=== PATIENT | female | born 1965 | race Caucasian/White ===

== ENCOUNTER 2017-03-21 20:12 | Inpatient (IN) | payer OTHER ==
[~2017-03-21] VITALS: Ht 165.1 cm; Wt 63.2 kg
[~2017-03-21 20:12] MED LIST changes: -ACYC400T PO; -CYMB60CA PO; -DOCU1CAP39 PO; -FEXO15TA PO; -FLUT1INH INH; -FLUT50SP EACH NARE; -HYDR-3580 PO; -LIOT5TAB3 PO; -MOBI15TA PO; -MONT10TA4 PO; -MULTTAB25 PO; -PANT40TA3 PO; -PRED20 PO; -SIME1CHW11 PO; -TOPI200T7 PO; -VITA100021 SL; -VITA2000 PO
[2017-03-21 20:15] VITALS: BP 102/71; PULSE 103; RESP 18; TEMP 98.9; O2SAT 100
[2017-03-21 22:00] VITALS: BP 118/81; PULSE 90; RESP 18; O2SAT 100
[2017-03-21] MEDS ORDERED: TOPI200T7 PO (22:06)
[2017-03-21] MEDS ORDERED: VITA2000 PO (22:06)
[2017-03-21] MEDS ORDERED: FEXO15TA PO (22:06)
[2017-03-21] MEDS ORDERED: MONT10TA4 PO (22:06)
[2017-03-21] MEDS ORDERED: ACYC400T PO (22:06)
[2017-03-21] MEDS ORDERED: LEVO.1 PO (22:06)
[2017-03-21] MEDS ORDERED: HYDR-3580 PO (22:06)
[2017-03-21] MEDS ORDERED: MOBI15TA PO (22:06)
[2017-03-21] MEDS ORDERED: CYMB60CA PO (22:06)
[2017-03-21] MEDS ORDERED: MYCO500 PO ×2 (22:06)
[2017-03-21] MEDS ORDERED: VITA100021 SL (22:06)
[2017-03-21] MEDS ORDERED: LIOT5TAB3 PO (22:06)
[2017-03-21] MEDS ORDERED: FLUT50SP EACH NARE (22:06)
[2017-03-21] MEDS ORDERED: MULTTAB25 PO (22:06)
[2017-03-21] MEDS ORDERED: FLUT1INH INH (22:06)
--- NOTE | 2017-03-21 22:09 | PD ---
HPI Chief Complaint: Abdominal Pain Time Seen by Provider: 22:05 Travel History International Travel<30 days: No Contact w/Intl Traveler<30days: No Traveled to known affect area: No History of Present Illness HPI 52-year-old female presents to the emergency department by private transportation for complaint of generalized weakness nausea subjective fever and intermittent chills myalgias arthralgias left lower quadrant abdominal pain bloating and fatigue. Patient is presently under the care of Dr. France and for history of lupus, anemia, hypothyroidism, asthma, and depression. Symptoms have developed over the past 2-3 weeks and have progressively worsened. Patient has had an outpatient CT of the abdomen and pelvis from her primary care provider which revealed no acute abnormalities. Patient is also performed a bowel cleansing for subjective constipation which was reportedly successful but now again feels bloated and constipated. There has been nausea but no reported vomiting no bilious emesis hematemesis coffee-ground emesis and no report of melena hematochezia. Patient was seen recently by her material handler loader who ordered outpatient labs through the Hospital outpatient laboratory today but continued to feel poorly so decided to come to the emergency room because she did not feel she did go home due to her complaint of overall body pain 7-9/10 in intensity and generalized weakness and fatigue. Patient was identified to have low-grade temperature elevation of 100F reportedly at the doctor's office. Patient does not report headache visual disturbance has noted some mild sinus drainage no sore throat has had some shortness of breath no productive cough no complaint of chest pain generalized abdominal discomfort with bloating sensation nausea without vomiting no diarrhea no dysuria frequency or urgency she's had some joint pain but no joint swelling and no skin rash. Patient is unable to identify exacerbating or alleviating factors. Patient has also noted decreased appetite. PFSH Past Medical History Narrative Medical lupus, anemia, hypothyroidism, asthma, depression, laparoscopy tubal ligation; no tobacco use; nursing notes reviewed Asthma: Yes Blood Disorders: No Anxiety: Yes Depression: Yes Cancer: No Cardiovascular Problems: No Diabetes: No Endocrine: No Gastrointestinal Disorders: Yes Glaucoma: No Genitourinary: No Hepatitis: No Hiatal Hernia: Yes Hypertension: No Immune Disorder: No Musculoskeletal: No Neurologic: No Psychiatric: Yes Reproductive: No Respiratory: Yes Thyroid Disease: No Tetanus Vaccination: Unknown ?: Not Menopausal: Yes Past Surgical History Gynecologic Surgery: Yes (LAPARPSCOPY,TL) Pacemaker: No Other Surgery: Yes Social History Alcohol Use: No Tobacco Use: No Substance Use: No Allergies-Medications (Allergen,Severity, Reaction): Coded Allergies: Percocet (Verified Adverse Reaction, Unknown, NAUSEA, 03/21/17) Stadol (Verified Adverse Reaction, Unknown, PANIC ATTACK, 03/21/17) Reported Meds & Prescriptions Reported Meds & Active Scripts Active Reported Vitamin D3 (Cholecalciferol) 2,000 Unit Cap 2,000 Units PO DAILY Topiramate 200 Mg Tab 100 Mg PO DAILY Multi For Her 50+ (Multiple Vitamins W/ Minerals) 1 Tab Tab 1 Tab PO DAILY Montelukast (Montelukast Sodium) 10 Mg Tab 10 Mg PO HS Mobic (Meloxicam) 15 Mg Tab 15 Mg PO DAILY Liothyronine (Liothyronine Sodium) 5 Mcg Tab 5 Mcg PO DAILY Synthroid (Levothyroxine Sodium) 100 Mcg Tab 100 Mcg PO DAILY Hydrocodone-Acetaminophen 7.5-325 mg Tab 1 Tab PO Q4H PRN Fluticasone Nasal [place] 50 Mcg/Act Naspr 50 Mcg EACH NARE BID 50 mcg/spray Cymbalta DR (Duloxetine HCl) 60 Mg Capdr 60 Mg PO DAILY Cellcept (Mycophenolate Mofetil) 500 Mg Tab 1,000 Mg PO DAILY Cellcept (Mycophenolate Mofetil) 500 Mg Tab 1,000 Mg PO HS Breo Ellipta Inh (Fluticasone/Vilanterol) 100-25 Mcg/Act Inh 1 Puff INH DAILY Use daily at the same time. Vitamin B-12 (Cyanocobalamin) 1,000 Mcg Subl 1,000 Mcg SL DAILY Faye Allergy (Fexofenadine HCl) 180 Mg Tab 180 Mg PO DAILY Acyclovir 400 Mg Tab 400 Mg PO DAILY Review of Systems Except as stated in HPI: all other systems reviewed are Neg General / Constitutional: Positive: Fever (low-grade), Chills Eyes: No: Visual changes HENT: No: Headaches, Sore Throat, Congestion Cardiovascular: No: Chest Pain or Discomfort Respiratory: Positive: Shortness of Breath, No: Cough, Wheezing Gastrointestinal: Positive: Nausea, Abdominal Pain, Loss of Appetite, No: Vomiting, Diarrhea, Hematemesis, Hematochezia Genitourinary: No: Dysuria, Flank Pain Musculoskeletal: Positive: Myalgias, Arthralgias Skin: No Rash Neurologic: Positive: Weakness Psychiatric: Positive: Anxiety Hematologic/Lymphatic: No: Easy Bruising Physical Exam Narrative GENERAL: Well-developed well-nourished female in no acute distress no respiratory distress SKIN: Warm and dry. Jaundice HEAD: Normocephalic. EYES: Scleral icterus. No injection or drainage. NECK: Supple, trachea midline. No JVD or lymphadenopathy. CARDIOVASCULAR: Regular rate and rhythm without murmurs, gallops, or rubs. RESPIRATORY: Breath sounds equal bilaterally. No accessory muscle use. GASTROINTESTINAL: Abdomen soft, diffusely tender to palpation without guarding or rebound or hepatosplenomegaly, nondistended. MUSCULOSKELETAL: No cyanosis, or edema. BACK: Nontender without obvious deformity. No CVA tenderness. Data Data Last Documented VS Vital Signs Date Time Temp Pulse Resp B/P Pulse Ox O2 Delivery O2 Flow Rate FiO2 03/21/17 20:15 98.9 103 18 102/71 100 Room Air Orders Ammonia (03/21/17 21:45) Lipase (03/21/17 22:01) Sodium Chlor 0.9% 1000 Ml Inj (Ns 1000 M (03/21/17 22:15) Ondansetron Inj (Zofran Inj) (03/21/17 22:15) Lactic Acid (03/21/17 22:01) Blood Culture (03/21/17 22:01) Morphine Inj (Morphine Inj) (03/21/17 22:15) Us Abdomen Gallbladder (03/21/17 ) Admit Order (Ed Use Only) (03/21/17 ) ^ Saline Lock (03/21/17 22:57) Resp Oxygen Federico C Titrat 1-4 L (03/21/17 ) Notify Dr: Other (03/21/17 22:57) Sodium Chloride 0.9% Flush (Ns Flush) (03/22/17 09:00) Sodium Chloride 0.9% Flush (Ns Flush) (03/21/17 23:00) Labs Laboratory Tests Test 03/21/17 03/21/17 21:40 22:20 Ammonia LESS THAN 10 MCMOL/L Lipase 218 U/L Acetaminophen Level LESS THAN 2.0 MCG/ML Lactic Acid Level 0.8 mmol/L MDM Medical Decision Making Medical Screen Exam Complete: Yes Emergency Medical Condition: Yes Medical Record Reviewed: Yes Interpretation(s) Vital Signs Date Time Temp Pulse Resp B/P Pulse Ox O2 Delivery O2 Flow Rate FiO2 03/21/17 20:15 98.9 103 18 102/71 100 Room Air ammonia: less than 10, not elevated Lipase 218, not elevated CBC: outpatient [facility] lab 03/21/17 wnl except mild thrombocytopenia 148,000 cmp: outpatient [facility] lab 03/21/17; remarkable for LFT elevation TB: 8.3, AST: 1793 , ALT:1909, alk phos: 375 c-rp: 1.20 elevated Differential Diagnosis Generalized weakness, exacerbation lupus, anemia, viral syndrome, dehydration, UTI, hepatitis, biliary colic, pancreatitis, colitis, diverticulitis Narrative Course IV access obtained specimens collected and sent for resulting Labs from 03/21/17 reviewed and patient with marked elevation of LFTs consistent with hepatitis or obstructive process; ultrasound right upper quadrant ordered Patient administered normal saline 1 L bolus along with Zofran for complaint of nausea and morphine sulfate for complaint of pain; call placed to admitting physician At 12:24 AM ultrasound resulted noted to have marked thickening of the gallbladder concerning for possible acute acalculus cholecystitis radionucleotide it tight imaging study is recommended Physician Communication Physician Communication discussed with Dr Macdonald ---will admit to his service Diagnosis Primary Impression: Generalized weakness Additional Impressions: Elevated LFTs Hepatitis Acalculous cholecystitis Admitting Information Admitting Physician Requests: Admit Amy Lynn MD Mar 21, 2017 22:09
[2017-03-21] MEDS ORDERED: SODIUM CHLOR 0.9% 1000 ML INJ 1,000 ML IV ONE (22:15)
[2017-03-21] MEDS ORDERED: MORPHINE SULFATE 4 MG/ML INJ IV PUSH ONE ×2 (22:15→23:15)
[2017-03-21] MEDS ORDERED: ONDANSETRON HCL 4 MG/2 ML VIAL IV PUSH ONE (22:15)
[2017-03-21 23:00] VITALS: BP 111/62; PULSE 94; RESP 16; O2SAT 98
[2017-03-21] MEDS ORDERED: SODIUM CHLORIDE 0.9% FLUSH 10 ML FLUSH IVF PRN (23:00)
[2017-03-21 23:11] VITALS: O2SAT 100
--- NOTE | 2017-03-21 23:48 | RADRPT ---
EXAM DATE/TIME: 03/21/2017 22:48 [place] COMPARISON: No previous studies available for comparison. INDICATIONS : Nausea and vomiting. MEDICAL HISTORY : Lupus. Hernia, hiatal. Hypothyroidism. Asthma. Anemia. Depression. Anxiety. Blood transfusion. SURGICAL HISTORY : Tubal ligation. ENCOUNTER: Initial ACUITY: 3 weeks PAIN SCORE: 9/10 LOCATION: Right upper quadrant MEASUREMENTS: LIVER: 13.8 cm length COMMON DUCT: 6 mm RIGHT KIDNEY: 10.9 x 5.8 x 4.9 cm FINDINGS: Ultrasound of the upper abdomen demonstrates normal echogenicity of the liver. No intrahepatic or ext ra hepatic ductal dilatation is seen. There is hepatopedal flow through the portal vein. The pancrea s demonstrates no evidence of mass and there is no dilatation of the pancreatic duct. There is marked thickening of the gallbladder wall which may reflect a calculus cholecystitis. Common duct is border line enlarged. There is a trace amount of free fluid surrounding the liver. CONCLUSION: 1. Marked thickening of the gallbladder wall which may reflect cholecystitis. Radionuclide imaging is recommended for further evaluation if clinically indicated. Donald Weathers MD on March 21, 2017 at 23:45 Board Certified Radiologist. This report was verified electronically.
[2017-03-22] VITALS (9 sets, daily range): BP systolic 108–126; BP diastolic 62–70; PULSE 70–96; RESP 16–20; TEMP 97.3–97.9; O2SAT 93–100
[2017-03-22] MEDS ORDERED: PIPERACIL-TAZO 4.5 GM PREMIX 100 ML IV ONE (00:30)
[2017-03-22] MEDS: SODIUM CHLOR 0.9% 1000 ML INJ 1,000 ML IV SCH ×3 (01:04→21:07)
[2017-03-22 01:41] LABS: APTT (PATIENT) 35.2 SEC (24.3-30.1); INTERNATIONAL NORMALIZED RATIO 1.3 RATIO; PROTHROMBIN TIME - PATIENT 14.1 SEC (9.8-11.6)
[2017-03-22] MEDS: MYCOPHENOLATE MOFETIL 500 MG TAB PO SCH (06:28)
[2017-03-22] MEDS: LEVOTHYROXINE SODIUM 100 MCG TAB PO SCH (06:28)
[2017-03-22] MEDS: LIOTHYRONINE SODIUM 5 MCG TAB PO SCH (06:28)
[2017-03-22 06:59] LABS: AUTOMATED NEUTROPHIL # 2.2 TH/MM3 (1.8-7.7); BASOPHIL % 0.8 % (0.0-2.0); EOSINOPHIL # 0.1 TH/MM3 (0-0.4); EOSINOPHIL % 1.7 % (0.0-4.0); HEMATOCRIT 33.9 % (35.0-46.0); HEMO FLAGS DIFF FINAL; LYMPH % 23.1 % (9.0-44.0); LYMPHOCYTE # 0.8 TH/MM3 (1.0-4.8); MEAN CELL VOLUME 91.4 FL (80.0-100.0); MEAN CORPUSCULAR HEMOGLOBIN 30.9 PG (27.0-34.0); MEAN CORPUSCULAR HGB CONC 33.8 % (32.0-36.0); MONO % 12.1 % (0.0-8.0); NEUT % 62.3 % (16.0-70.0); PLATELET COUNT 121 TH/MM3 (150-450); RED BLOOD COUNT 3.71 MIL/MM3 (4.00-5.30); WHITE BLOOD COUNT 3.5 TH/MM3 (4.0-11.0)
[2017-03-22 08:02] LABS: BICARBONATE 24.5 MEQ/L (21.0-32.0); INDIRECT BILIRUBIN 1.3 MG/DL (0.0-0.8); POTASSIUM 3.8 MEQ/L (3.5-5.1); TOTAL BILIRUBIN ADULT 7.5 MG/DL (0.2-1.0)
[2017-03-22] MEDS: MULTIVITAMINS/MINERALS THERAPEUTIC TAB PO SCH ×2 (08:13→09:04)
[2017-03-22] MEDS: DULoxetine HCl DR 60 MG CAP PO SCH ×2 (08:13→09:04)
[2017-03-22] MEDS: TOPIRAMATE 100 MG TAB PO SCH ×2 (08:13→09:04)
[2017-03-22] MEDS: LORATADINE 10 MG TAB PO SCH ×2 (08:13→09:03)
[2017-03-22] MEDS: MORPHINE SULFATE 4 MG/ML INJ IV PUSH PRN ×2 (08:13→15:12)
[2017-03-22] MEDS: FLUTICASONE PROPIONATE 50 MCG/ACT 16 GM NASAL SPRAY EACH NARE SCH ×2 (08:14→09:04)
[2017-03-22] MEDS: FLUTICASONE 100 MCG/VILANTEROL 25 MCG INHALER INH SCH (08:17)
[2017-03-22] MEDS: SODIUM CHLORIDE 0.9% FLUSH 10 ML FLUSH IV FLUSH SCH ×2 (09:05→20:53)
[2017-03-22] MEDS ORDERED: LACTULOSE SYRUP 20 GM/30 ML CUP PO SCH (10:00)
--- NOTE | 2017-03-22 10:00 | HHI.HP ---
HPI Service [facility] Hospitalists Primary Care Physician Essence France MD Admission Diagnosis generalized weakness; hepatitis; h/o lupus Chief Complaint: Abdominal pain, generalized weakness. Travel History International Travel<30 Days: No Contact w/Intl Traveler <30 Da: No Traveled to Known Affected Are: No History of Present Illness Mrs. Almodovar is a pleasant 52 y/o WF with Lupus (pt is on Cellcept and Mobic), COPD, hypothyroidism, migraine headaches and hx of iron deficiency. She presented to the ED at [facility] on 03/21/17 with complaints of generalized weakness, nausea, subjective fever and intermittent chills, myalgias, generalized abdominal pain, bloating and fatigue. Pt reports that her symptoms began around 3 weeks ago with left sided abdominal discomfort, increased fatigue. There was no injury to account for the left flank pain. She denies any urinary symptoms at that time. Pt was seen by her PCP, Dr. France, who sent her for a CT Abd/ pelvis W/O contrast on 03/12/17 which was negative for any renal or ureteral calculus and no evidence of obstructive uropathy. She reports a change in her bowel habits at that time with increased constipation so she tried using Fleet enemas and Dulcolax with some bowel movements but not anything significant and no real improvement in the abd/flank pain. She states that she also had some associated nausea and then began having more epigastric abdominal discomfort. She denies any association with food intake with any worsening of pain or nausea. She generally has a poor appetite but states that it has been worse lately. She has not had any vomiting either. Pt does take Mobic daily for her Lupus. Pt previously had an EGD in 12/2015 which noted gastritis otherwise negative. She was started on some Ranitidine BID but states that this didn't seem to help at all. Patient called her hand developer who ordered outpatient labs through the Hospital outpatient laboratory on 03/21 but continued to feel poorly so decided to go to the ED for further evaluation. Pt states that she has been too weak to get out of bed for the last 5 days. Her labs on 03/21 noted Tbili 8.3, AST 1793, ALT 1909, AlkPhos 375, CRP 1.20, ESR was 7. Autoimmune panel is pending (TIESHA, SS-A Ab/SS-B Ab, Marrero Ab, Scl-70 Ab, DS DNA Ab, RF). Pt had a GB US performed in the ED which noted marked thickening of the gallbladder wall and borderline common duct dilation and a trace amount of free fluid surrounding the liver. Repeat LFTs today with Tbili 7.5, DBili 6.2, AST 1666, ALT 1589, AlkPhos 285. Tylenol level is negative. Monoscreen is negative. Review of outpt labs from 12/2016 noted completely normal LFTs. She denies any hx of viral hepatitis. She has not had any significant medication changes recently. She had been using Flexeril and [place] intermittently. Pt was recently started on Ranitidine and Rizatriptan as needed for headaches. Review of Systems Constitutional: COMPLAINS OF: Diaphoretic episodes, Fatigue, Chills, Change in appetite Eyes: DENIES: Vision loss Ears, nose, mouth, throat: DENIES: Hearing loss, Throat pain, Hoarseness, Sinus Pain Respiratory: DENIES: Cough, Shortness of breath Cardiovascular: DENIES: Chest pain, Palpitations, Lower Extremity Edema Gastrointestinal: COMPLAINS OF: Abdominal pain, Constipation, Nausea, See HPI, DENIES: Black stools, Bloody stools, Diarrhea, Reflux, Vomiting Musculoskeletal: DENIES: Back pain Integumentary: DENIES: Rash Neurologic: COMPLAINS OF: Headache Psychiatric: DENIES: Confusion Past Family Social History Past Medical History Lupus Hypothyroidism/Mylene thyroiditis Migraine headaches Iron deficiency Hiatal hernia COPD HSV-2 Depression Past Surgical History Arthroscopy right knee Inguinal hernia repair on the left x 2 on the right x 1 Partial hysterectomy Umbilical hernia repair Tubal ligation Hemorrhoidectomy Breast biopsy EGD in 12/2015 Reported Medications -Vitamin D3 2,000 Units PO DAILY -Topiramate 100 Mg PO DAILY -Multi For Her 50+ 1 Tab PO DAILY -Montelukast 10 Mg PO HS -Mobic 15 Mg PO DAILY -Liothyronine 5 Mcg PO DAILY -Synthroid 100 Mcg PO 6 days per week -Hydrocodone-Acetaminophen 7.5-325 mg PO Q4H PRN -Fluticasone Nasal [place] 50 Mcg/Act Naspr EACH NARE BID -Cymbalta DR 60 Mg PO DAILY -Cellcept 1,000 Mg PO DAILY -Cellcept 500 Mg PO HS -Breo Ellipta Inh 100-25 Mcg/Act Inh 1 Puff INH DAILY -Vitamin B-12 1,000 Mcg SL DAILY -Faye Allergy 180 Mg PO DAILY -Acyclovir 400 Mg PO DAILY Allergies: Coded Allergies: Percocet (Verified Adverse Reaction, Unknown, NAUSEA, 03/21/17) Stadol (Verified Adverse Reaction, Unknown, PANIC ATTACK, 03/21/17) Family History Pt is adopted, family hx is unknown Social History Denies any alcohol, tobacco or illicit drug use She is recently Pt has three children who are all healthy She works at a local [employer] in [place]. Physical Exam Vital Signs Vital Signs Date Time Temp Pulse Resp B/P Pulse Ox O2 Delivery O2 Flow Rate FiO2 03/22/17 07:48 97 Nasal Cannula 2.00 03/22/17 07:35 97.5 78 18 112/62 100 03/22/17 02:40 75 03/22/17 01:58 97.9 70 20 108/63 100 03/22/17 01:00 86 16 114/69 98 Nasal Cannula 2 03/22/17 00:00 96 16 112/70 100 Nasal Cannula 2 03/21/17 23:11 100 03/21/17 23:00 94 16 111/62 98 Nasal Cannula 2 03/21/17 22:00 90 18 118/81 100 Room Air 03/21/17 20:15 98.9 103 18 102/71 100 Room Air Physical Exam GENERAL: This is a well-nourished, well-developed patient, in no apparent distress. HEENT: Atraumatic. Normocephalic. No temporal or scalp tenderness. Scleral icterus. Airway patent. NECK: Trachea midline, supple, nontender. CARDIO: Regular. RESP: CTA bilaterally. No wheezes, rales, or rhonchi. ABD: Decreased BS, soft, mildly distended, mild diffuse tenderness worse in the RUQ, no guarding or rebound. EXT: Extremities without clubbing, cyanosis, or edema. NEURO: Awake and alert. Motor and sensory grossly within normal limits. Normal speech. Laboratory Laboratory Tests Test 03/21/17 03/21/17 03/22/17 03/22/17 21:40 22:20 00:45 06:30 Ammonia LESS THAN 10 Lipase 218 Acetaminophen Level LESS THAN 2.0 Lactic Acid Level 0.8 Prothrombin Time 14.1 Prothromb Time International 1.3 Ratio Activated Partial 35.2 Thromboplast Time Monoscreen NEG White Blood Count 3.5 Red Blood Count 3.71 Hemoglobin 11.4 Hematocrit 33.9 Mean Corpuscular Volume 91.4 Mean Corpuscular Hemoglobin 30.9 Mean Corpuscular Hemoglobin 33.8 Concent Red Cell Distribution Width 16.0 Platelet Count 121 Mean Platelet Volume 9.9 Neutrophils (%) (Auto) 62.3 Lymphocytes (%) (Auto) 23.1 Monocytes (%) (Auto) 12.1 Eosinophils (%) (Auto) 1.7 Basophils (%) (Auto) 0.8 Neutrophils # (Auto) 2.2 Lymphocytes # (Auto) 0.8 Monocytes # (Auto) 0.4 Eosinophils # (Auto) 0.1 Basophils # (Auto) 0.0 CBC Comment DIFF FINAL Differential Comment Sodium Level 140 Potassium Level 3.8 Chloride Level 109 Carbon Dioxide Level 24.5 Anion Gap 7 Blood Urea Nitrogen 10 Creatinine 0.67 Estimat Glomerular Filtration 92 Rate Random Glucose 83 Calcium Level 7.5 Total Bilirubin 7.5 Direct Bilirubin 6.2 Indirect Bilirubin 1.3 Aspartate Amino Transf 1666 (AST/SGOT) Alanine Aminotransferase 1589 (ALT/SGPT) Alkaline Phosphatase 285 Total Protein 5.0 Albumin 2.3 Thyroid Stimulating Hormone 3.200 3rd Gen Date/Time Procedure Status Source Growth 03/21/17 22:20 Aerobic Blood Culture Received Blood Peripheral Pending 03/21/17 22:20 Anaerobic Blood Culture Received Blood Peripheral Pending Result Diagram: 03/22/17 0630 03/22/17 0630 Imaging Last Impressions Gall Bladder Ultrasound 03/21/17 0000 Signed Impressions: Service Date/Time: March 22:48 - CONCLUSION: 1. Marked thickening of the gallbladder wall which may reflect cholecystitis. Radionuclide imaging is recommended for further evaluation if clinically indicated. Donald Weathers MD Septic Shock Reassessment Heart: Regular rate and rhythm Lungs: Clear Skin: Warm Assessment and Plan Problem List: (1) Elevated LFTs Status: Acute Plan: -Pt is a 52 y/o WF with Lupus (pt is on Cellcept and Mobic), COPD, hypothyroidism, migraine headaches and hx of iron deficiency. - Pt presented with complaints of generalized weakness, nausea, subjective fever and intermittent chills, myalgias, generalized abdominal pain, constipation, bloating and fatigue which began around 3 weeks ago with left sided abdominal discomfort, increased fatigue. - Output CT Abd/pelvis W/O contrast on 03/12/17 which was negative for any renal or ureteral calculus and no evidence of obstructive uropathy. - She reports a change in her bowel habits at that time with increased constipation so she tried using Fleet enemas and Dulcolax with some bowel movements but not anything significant and no real improvement in the abd /flank pain. - Her labs on 03/21 noted Tbili 8.3, AST 1793, ALT 1909, AlkPhos 375, CRP 1.20, ESR was 7. - Autoimmune panel is pending (TIESHA, SS-A Ab/SS-B Ab, Marrero Ab, Scl-70 Ab, DS DNA Ab, RF). - Pt had a GB US performed in the ED which noted marked thickening of the gallbladder wall and borderline common duct dilation and a trace amount of free fluid surrounding the liver. - Repeat LFTs today with Tbili 7.5, DBili 6.2, AST 1666, ALT 1589, AlkPhos 285. - The cause for her elevated LFTs is unclear at this time, possibly secondary to medications vs. viral etiology vs. autoimmune process vs. biliary obstruction vs. other. - Tylenol level is negative. - Monoscreen is negative. - Review of outpt labs from 12/2016 noted completely normal LFTs. She denies any hx of viral hepatitis. She had been using Flexeril intermittently. Pt was recently started on Ranitidine and Rizatriptan as needed for headaches. - CMV, EBV, viral hepatitis panels are pending - Add ASMA, AMA, Ceruloplasmin, Iron studies, Ferritin, and [id number] to autoimmune workup. - GI is consulted - Check MRCP to rule out obstructive process. - Check Mycophenolic acid level as well. - Of note, the pt reports that she travels to [place] [facility] every year and recently returned from a mission trip in January 2017. Rare possibility for her symptoms and elevated LFTs could be a parasitic infection. We will check stools for O&P. - She had also been taking antibiotics recently for an oral surgery she had and for a finger infection and was taking antibiotics up until 01/2017. - IVF - Pain control PRN, but use sparingly due to constipation. - Further workup based on results of the above. - DVT prophylaxis with SCDs (2) Generalized weakness Status: Acute Plan: - See above. (3) Constipation Status: Acute Plan: - May be related to pain medications and immobility. - Colace BID - Lactulose daily (4) Lupus (systemic lupus erythematosus) Status: Chronic Plan: - Resume Cellcept at home dose of 1000mg in AM and 500mg in evening. - Hold on resuming Mobic. (5) Hypothyroidism Status: Chronic Plan: - Cont. home meds - TSH was 3.200 on 03/22/17 - Previous labs on 03/13 with TSH 0.194 and Free T4 1.33 and Synthroid was changed to 100mcg 6 days per week Assessment and Plan Patient examined. Assessment and plan formulated with Suzie Juan PA-C. I agree with the above. Physician Certification 2 Midnight Certification Type: Admission for Inpatient Services Order for Inpatient Services 3The services are ordered in accordance with Medicare regulations or non- Medicare payer requirements, as applicable. In the case of services not specified as inpatient-only, they are appropriately provided as inpatient services in accordance with the 2-midnight benchmark. Estimated LOS (days): 3 3 days is the estimated time the patient will need to remain in the hospital, assuming treatment plan goals are met and no additional complications. Post-Hospital Plan: Home Suzie Juan Mar 22, 2017 10:00 Yfn Merchant MD Mar 23, 2017 11:39
--- NOTE | 2017-03-22 10:43 | PD.CONS ---
HPI History of Present Illness This is a 52 year old [lady] w/ hx lupus who presented to the ER yesterday with left side abdominal pain that started a month ago. The pain is sharp and constant, gradually worsened. No aggravating or alleviating factors. The pain was later accompanied by nausea and new onset constipation for the last 2 weeks. Shes been taking dulcolax which helped. She says her thyroid medication was changed at about that time- 2w ago. She has also been having epigastric pain worse after eating in the last week. She last had BM yesterday , was scant and hard. She last had EGD [address] Kimbrough with finding of gastritis, and hemorrhoid band[place] [address] Pettit. Her last colonoscopy was years ago and found hemorrhoids. Admits low grade fever, joint aches worse than normal in the last month, as well as jaundice. Recent travel to [facility]. No vomiting, diarrhea, no blood. (Jenna Webb) PFSH Past Medical History lupus hypothyroid- hashimotos Past Surgical History collar bone partially removed hysterectomy inguinal & femoral herniorraphy, umbilical hernia repair (Jenna Webb) Coded Allergies: Percocet (Verified Adverse Reaction, Unknown, NAUSEA, 03/21/17) Stadol (Verified Adverse Reaction, Unknown, PANIC ATTACK, 03/21/17) Family History unk- adopted Social History no ETOH no tobacco no illicit drugs, iv drug use (Jenna Webb) Review of Systems Constitutional: COMPLAINS OF: Fever Eyes: DENIES: Blurred vision Ears, nose, mouth, throat: DENIES: Hearing loss Respiratory: COMPLAINS OF: Cough, Wheezing Gastrointestinal: COMPLAINS OF: Abdominal pain, Constipation, Nausea, Swelling of Abdomen, DENIES: Black stools, Bloody stools, Diarrhea, Vomiting Genitourinary: COMPLAINS OF: Hematuria Musculoskeletal: COMPLAINS OF: Joint pain, Muscle aches Integumentary: COMPLAINS OF: Jaundice Hematologic/lymphatic: DENIES: Bruising Neurologic: COMPLAINS OF: Abnormal gait Psychiatric: DENIES: Confusion (Jenna Webb) GI Exam Vitals I&O Vital Signs Date Time Temp Pulse Resp B/P Pulse Ox O2 Delivery O2 Flow Rate FiO2 03/22/17 07:48 97 Nasal Cannula 2.00 03/22/17 07:35 97.5 78 18 112/62 100 03/22/17 02:40 75 03/22/17 01:58 97.9 70 20 108/63 100 03/22/17 01:00 86 16 114/69 98 Nasal Cannula 2 03/22/17 00:00 96 16 112/70 100 Nasal Cannula 2 03/21/17 23:11 100 03/21/17 23:00 94 16 111/62 98 Nasal Cannula 2 03/21/17 22:00 90 18 118/81 100 Room Air 03/21/17 20:15 98.9 103 18 102/71 100 Room Air Imaging Last Impressions Gall Bladder Ultrasound 03/21/17 0000 Signed Impressions: Service Date/Time: March 22:48 - CONCLUSION: 1. Marked thickening of the gallbladder wall which may reflect cholecystitis. Radionuclide imaging is recommended for further evaluation if clinically indicated. Donald Weathers MD Laboratory Test 03/21/17 03/21/17 03/22/17 03/22/17 21:40 22:20 00:45 06:30 Ammonia LESS THAN 10 MCMOL/L Lipase 218 U/L Acetaminophen Level LESS THAN 2.0 MCG/ML Lactic Acid Level 0.8 mmol/L Prothrombin Time 14.1 SEC Prothromb Time International 1.3 RATIO Ratio Activated Partial 35.2 SEC Thromboplast Time Monoscreen NEG White Blood Count 3.5 TH/MM3 Red Blood Count 3.71 MIL/MM3 Hemoglobin 11.4 GM/DL Hematocrit 33.9 % Mean Corpuscular Volume 91.4 FL Mean Corpuscular Hemoglobin 30.9 PG Mean Corpuscular Hemoglobin 33.8 % Concent Red Cell Distribution Width 16.0 % Platelet Count 121 TH/MM3 Mean Platelet Volume 9.9 FL Neutrophils (%) (Auto) 62.3 % Lymphocytes (%) (Auto) 23.1 % Monocytes (%) (Auto) 12.1 % Eosinophils (%) (Auto) 1.7 % Basophils (%) (Auto) 0.8 % Neutrophils # (Auto) 2.2 TH/MM3 Lymphocytes # (Auto) 0.8 TH/MM3 Monocytes # (Auto) 0.4 TH/MM3 Eosinophils # (Auto) 0.1 TH/MM3 Basophils # (Auto) 0.0 TH/MM3 CBC Comment DIFF FINAL Differential Comment Sodium Level 140 MEQ/L Potassium Level 3.8 MEQ/L Chloride Level 109 MEQ/L Carbon Dioxide Level 24.5 MEQ/L Anion Gap 7 MEQ/L Blood Urea Nitrogen 10 MG/DL Creatinine 0.67 MG/DL Estimat Glomerular Filtration 92 ML/MIN Rate Random Glucose 83 MG/DL Calcium Level 7.5 MG/DL Total Bilirubin 7.5 MG/DL Direct Bilirubin 6.2 MG/DL Indirect Bilirubin 1.3 MG/DL Aspartate Amino Transf 1666 U/L (AST/SGOT) Alanine Aminotransferase 1589 U/L (ALT/SGPT) Alkaline Phosphatase 285 U/L Total Protein 5.0 GM/DL Albumin 2.3 GM/DL Thyroid Stimulating Hormone 3.200 uIU/ML 3rd Gen Date/Time Procedure Status Source Growth 03/21/17 22:20 Aerobic Blood Culture Received Blood Peripheral Pending 03/21/17 22:20 Anaerobic Blood Culture Received Blood Peripheral Pending Physical Examination HEENT: EOMI; normocephalic; atraumatic; + icterus CHEST: CTA CARDIAC: RRR ABDOMEN: Soft, nondistended, TTP epigastrum, LLQ, LUQ; bowel sounds are present in all four quadrants. EXTREMITIES: No clubbing, cyanosis, or edema. SKIN: Normal; no rash; no jaundice. [employer]: No focal deficits; alert and oriented times three. (Jenna Webb) Assessment and Plan Plan ASSESSMENT - elevated LFTs, jaundice - hep panel neg, immunology liver w/u pending, EBV and CMV pending. Pt w/ hx lor, lupus. US suggestive cholecystitis. MRCP pending. - abdominal pain - left side, epigastric area worse after eating. Pt with hx recent travel [facility]. stool cx pending. PLAN - await MRCP - await rest of liver w/u - await stool cx - JIMMY - if epigastric pain persists, consider EGD - further recommendations to follow results above This pt seen by myself and DR Bower and this note is written on his behalf ( Jenna Webb) Physician Comments Seen and examined, MRCP negative for ductal/ biliary dilatation, mild GB wall edema, will start her on soft diet, check the entire autoimmune panel. Further recommendations to follow. (Sahra Bower MD) Jenna Webb Mar 22, 2017 10:43 Sahra Bower MD Mar 22, 2017 15:00
[2017-03-22] MEDS: DOCUSATE SODIUM 100 MG CAP PO SCH ×2 (12:00→20:53)
--- NOTE | 2017-03-22 14:24 | RADRPT ---
EXAM DATE/TIME: 03/22/2017 13:01 [place] COMPARISON: US ABDOMEN - GALLBLADDER, March 21, 2017, 22:48. [facility], [place] Abdomen, March 12, 2017 INDICATIONS : Obstruction. MEDICAL HISTORY : Hepatitis C. Lupus. SURGICAL HISTORY : Hysterectomy. Hernia repair. ENCOUNTER: Initial ACUITY: 1 day PAIN SCORE: 4/10 LOCATION: Abdomen. TECHNIQUE: Multiplanar, multisequence magnetic resonance imaging of the abdomen was performed. High-resolution 3D dataset was utilized to reconstruct maximum-intensity projection (MIP) images. FINDINGS: INTRAHEPATIC BILE DUCTS: Within normal limits. No significant anatomical variant is present. EXTRAHEPATIC BILE DUCTS: The common bile duct measures 5 mm. No stone or filling defect is identified. GALLBLADDER: Diffuse gallbladder wall thickening again seen measuring up to 5 mm in thickness. No gallstones are i dentified in the gallbladder. Moderate pericholecystic fluid. LIVER: Normal size and signal intensity. No concerning liver lesion is identified on this non-contrast exam. PANCREAS: The main pancreatic duct is normal in size. There is no significant anatomical variant. Signal inte nsity is within normal limits. No mass is visualized on this non-contrast exam. OTHER: Small bilateral pleural effusions. Small amount of ascites in the right upper quadrant and left upper quadrant. CONCLUSION: Nonspecific diffuse gallbladder wall thickening and pericholecystic fluid. In the setting of ascites and pleural effusions, this finding may be related to hypoalbuminemia. No gallstones identified. Cl Trujillo MD on March 22, 2017 at 14:16 Board Certified Radiologist. This report was verified electronically.
[2017-03-22 15:52] LABS: TRANSFERRIN IRON PROFILE 168 MG/DL (200-360)
[2017-03-22 16:06] LABS: FERRITIN 2210 NG/ML (8-252)
[2017-03-22] MEDS ORDERED: MYCOPHENOLATE MOFETIL 500 MG TAB PO SCH (18:00)
[2017-03-22] MEDS: ONDANSETRON HCL 4 MG/2 ML VIAL IV PUSH PRN (20:53)
[2017-03-22] MEDS: MONTELUKAST SODIUM 10 MG TAB PO SCH (20:53)
--- NOTE | 2017-03-22 22:12 | PD.CONS ---
HPI Service General Surgery Consult Requested By Dr. Merchant Reason for Consult possible cholecystitis Primary Care Physician Essence France MD History of Present Illness Mrs. Almodovar is a 52-year-old female who has felt poorly for approximately 1 month. She has had multiple symptoms including weakness and nausea fatigue bloating. She has multiple medical conditions including lupus for which she is on CellCept. After being evaluated as an outpatient she then presented to the emergency department where she was noted to have elevated liver function enzymes including a bilirubin of 7.5 and transaminases of 7928-9976. She denies drinking any alcohol at all. Viral hepatitis panel has been negative. Further labs are pending. She has significant elevation of ferritin. She says in the past she required iron transfusions were then underwent hysterectomy and has not had transfusions in quite some time. Currently she complains of mild diffuse abdominal pain but is worse in the epigastrium. When she tried to eat earlier she had a feeling of food getting caught in the epigastrium. She underwent gallbladder ultrasound which showed wall thickening. An MRCP also showed wall thickening and some mild ascites in the abdomen and small pleural effusions bilaterally. She does not have a history of right upper quadrant pain after eating. Review of Systems Constitutional: DENIES: Fever, Chills Eyes: DENIES: Eye inflammation, Eye pain Respiratory: DENIES: Cough, Wheezing Cardiovascular: DENIES: Chest pain, Lower Extremity Edema Gastrointestinal: COMPLAINS OF: Abdominal pain, Difficulty Swallowing Integumentary: DENIES: Pruritus, Rash Neurologic: DENIES: Paresthesias, Seizures Past Family Social History Past Medical History Lupus Hypothyroidism/Mylene thyroiditis Migraine headaches Iron deficiency Hiatal hernia COPD HSV-2 Depression Past Surgical History Tubal ligation Hysterectomy Reported Medications Reported Meds & Active Scripts Active Reported Vitamin D3 (Cholecalciferol) 2,000 Unit Cap 2,000 Units PO DAILY Topiramate 200 Mg Tab 100 Mg PO DAILY Multi For Her 50+ (Multiple Vitamins W/ Minerals) 1 Tab Tab 1 Tab PO DAILY Montelukast (Montelukast Sodium) 10 Mg Tab 10 Mg PO HS Mobic (Meloxicam) 15 Mg Tab 15 Mg PO DAILY Liothyronine (Liothyronine Sodium) 5 Mcg Tab 5 Mcg PO DAILY Synthroid (Levothyroxine Sodium) 100 Mcg Tab 100 Mcg PO DAILY Hydrocodone-Acetaminophen 7.5-325 mg Tab 1 Tab PO Q4H PRN Fluticasone Nasal Antoine 50 Mcg/Act Naspr 50 Mcg EACH NARE BID 50 mcg/spray Cymbalta DR (Duloxetine HCl) 60 Mg Capdr 60 Mg PO DAILY Cellcept (Mycophenolate Mofetil) 500 Mg Tab 1,000 Mg PO DAILY Cellcept (Mycophenolate Mofetil) 500 Mg Tab 1,000 Mg PO HS Breo Ellipta Inh (Fluticasone/Vilanterol) 100-25 Mcg/Act Inh 1 Puff INH DAILY Use daily at the same time. Vitamin B-12 (Cyanocobalamin) 1,000 Mcg Subl 1,000 Mcg SL DAILY Faye Allergy (Fexofenadine HCl) 180 Mg Tab 180 Mg PO DAILY Acyclovir 400 Mg Tab 400 Mg PO DAILY Allergies: Coded Allergies: Percocet (Verified Adverse Reaction, Unknown, NAUSEA, 03/21/17) Stadol (Verified Adverse Reaction, Unknown, PANIC ATTACK, 03/21/17) Active Ordered Medications Current Medications Medications (Trade) Dose Ordered Sig/Elvira Route Start Time Stop Time Status Last Admin (NS Flush) 2 ml BID IV FLUSH 03/22/17 09:00 03/22/17 20:53 (NS Flush) 2 ml UNSCH PRN IVF 03/21/17 23:00 (Zofran Inj) 4 mg Q4H PRN IV PUSH 03/21/17 23:15 03/22/17 20:53 (Morphine Inj) 2 mg Q3H PRN IV PUSH 03/21/17 23:15 03/22/17 15:12 (Cymbalta Dr) 60 mg DAILY PO 03/22/17 09:00 03/22/17 09:04 (Flonase Federico Spr) 1 spray BID EACH NARE 03/22/17 09:00 03/22/17 09:04 (Breo Ellipta 100-25 Inh) 1 puff DAILY INH 03/22/17 09:00 03/22/17 08:17 (Synthroid) 100 mcg DAILY@0600 PO 03/22/17 06:00 03/22/17 06:28 (Cytomel) 5 mcg DAILY@0600 PO 03/22/17 06:00 03/22/17 06:28 (Singulair) 10 mg HS PO 03/22/17 21:00 03/22/17 20:53 (Cellcept) 1,000 mg DAILY@06 PO 03/22/17 06:00 03/22/17 06:28 (Topamax) 100 mg DAILY PO 03/22/17 09:00 03/22/17 09:04 (Claritin) 10 mg DAILY PO 03/22/17 09:00 03/22/17 09:03 Multivitamins/ Minerals Therapeutic 1 tab 1 tab DAILY PO 03/22/17 09:00 03/22/17 09:04 (NS 1000 ml Inj) 1,000 ml @ 84 mls/hr [id number] IV 03/21/17 23:30 03/22/17 21:07 (Cellcept) 500 mg DAILY@18 PO 03/22/17 18:00 (Colace) 100 mg BID PO 03/22/17 10:00 03/22/17 20:53 (Lactulose Liq) 30 ml DAILY PO 03/22/17 10:00 Family History Noncontributory Social History Denies alcohol tobacco or drug use. Physical Exam Vital Signs Vital Signs Date Time Temp Pulse Resp B/P Pulse Ox O2 Delivery O2 Flow Rate FiO2 03/22/17 20:00 97.9 80 20 116/64 93 03/22/17 16:00 97.3 86 18 126/63 98 03/22/17 12:14 97.7 80 16 113/65 100 03/22/17 07:48 97 Nasal Cannula 2.00 03/22/17 07:35 97.5 78 18 112/62 100 03/22/17 02:40 75 03/22/17 01:58 97.9 70 20 108/63 100 03/22/17 01:00 86 16 114/69 98 Nasal Cannula 2 03/22/17 00:00 96 16 112/70 100 Nasal Cannula 2 03/21/17 23:11 100 03/21/17 23:00 94 16 111/62 98 Nasal Cannula 2 Physical Exam GENERAL: Awake and alert. No acute distress. Cooperative. HEAD: Normocephalic. Atraumatic. EYES: Pupils equal round and reactive to light bilaterally. + scleral icterus. ENT: Moist oral mucosa. NECK: Trachea midline. CHEST: Lungs clear to auscultation bilaterally with no wheezing or rhonchi. No respiratory distress. CARDIOVASCULAR: Regular rate and rhythm. ABDOMEN: Mild distention. Soft. Mild tenderness across the upper abdomen. EXTREMITIES: No cyanosis or edema. SKIN: Warm, dry, mild jaundice. Laboratory Laboratory Tests Test 03/21/17 03/22/17 03/22/17 22:20 00:45 06:30 Lactic Acid Level 0.8 Prothrombin Time 14.1 Prothromb Time International 1.3 Ratio Activated Partial 35.2 Thromboplast Time Monoscreen NEG White Blood Count 3.5 Red Blood Count 3.71 Hemoglobin 11.4 Hematocrit 33.9 Mean Corpuscular Volume 91.4 Mean Corpuscular Hemoglobin 30.9 Mean Corpuscular Hemoglobin 33.8 Concent Red Cell Distribution Width 16.0 Platelet Count 121 Mean Platelet Volume 9.9 Neutrophils (%) (Auto) 62.3 Lymphocytes (%) (Auto) 23.1 Monocytes (%) (Auto) 12.1 Eosinophils (%) (Auto) 1.7 Basophils (%) (Auto) 0.8 Neutrophils # (Auto) 2.2 Lymphocytes # (Auto) 0.8 Monocytes # (Auto) 0.4 Eosinophils # (Auto) 0.1 Basophils # (Auto) 0.0 CBC Comment DIFF FINAL Differential Comment Sodium Level 140 Potassium Level 3.8 Chloride Level 109 Carbon Dioxide Level 24.5 Anion Gap 7 Blood Urea Nitrogen 10 Creatinine 0.67 Estimat Glomerular Filtration 92 Rate Random Glucose 83 Calcium Level 7.5 Iron Level 105 Total Iron Binding Capacity 235 Percent Iron Saturation 44.6 Ferritin 2210 Total Bilirubin 7.5 Direct Bilirubin 6.2 Indirect Bilirubin 1.3 Aspartate Amino Transf 1666 (AST/SGOT) Alanine Aminotransferase 1589 (ALT/SGPT) Alkaline Phosphatase 285 Total Protein 5.0 Albumin 2.3 Thyroid Stimulating Hormone 3.200 3rd Gen Hepatitis A IgM Antibody NEGATIVE Hepatitis B Surface Antigen NEGATIVE Hepatitis B Core IgM Antibody NEGATIVE Hepatitis C Antibody NEGATIVE Date/Time Procedure Status Source Growth 03/21/17 22:20 Aerobic Blood Culture - Preliminary Resulted Blood Peripheral NO GROWTH IN 1 DAY 03/21/17 22:20 Anaerobic Blood Culture - Preliminary Resulted Blood Peripheral NO GROWTH IN 1 DAY Result Diagram: 03/22/1730 03/22/17 0630 Imaging Last Impressions Cholangiopancreatography MRI 03/22/17 0000 Signed Impressions: Service Date/Time: Wednesday, March 22, 2017 13:01 - CONCLUSION: Nonspecific diffuse gallbladder wall thickening and pericholecystic fluid. In the setting of ascites and pleural effusions, this finding may be related to hypoalbuminemia. No gallstones identified. Cl Trujillo MD Gall Bladder Ultrasound 03/21/17 0000 Signed Impressions: Service Date/Time: March 22:48 - CONCLUSION: 1. Marked thickening of the gallbladder wall which may reflect cholecystitis. Radionuclide imaging is recommended for further evaluation if clinically indicated. Donald Weathers MD Assessment and Plan Assessment and Plan 52-year-old female with history of multiple medical conditions including lupus with elevated liver function tests. She has gallbladder wall edema on ultrasound and MRCP. There are no stones mentioned. Based on her history and lab work I strongly doubt that she has primary cholecystitis and feel that liver dysfunction from hepatitis of some etiology is her primary problem at this time. I do not recommend cholecystectomy or cholecystostomy tube. Didier Bradley MD Mar 22, 2017 22:12
[2017-03-23] VITALS (8 sets, daily range): BP systolic 110–126; BP diastolic 64–75; PULSE 58–85; RESP 18–20; TEMP 97.3–98.4; O2SAT 93–100
[2017-03-23] MEDS: MORPHINE SULFATE 4 MG/ML INJ IV PUSH PRN ×6 (00:05→23:48)
[2017-03-23 00:40] LABS: EBV VCA IgM Negative (Negative)
[2017-03-23] MEDS: LIOTHYRONINE SODIUM 5 MCG TAB PO SCH (05:05)
[2017-03-23] MEDS: MYCOPHENOLATE MOFETIL 500 MG TAB PO SCH ×2 (05:06→16:48)
[2017-03-23] MEDS: LEVOTHYROXINE SODIUM 100 MCG TAB PO SCH (05:06)
[2017-03-23 08:16] LABS: AUTOMATED NEUTROPHIL # 2.3 TH/MM3 (1.8-7.7); BASOPHIL % 0.4 % (0.0-2.0); EOSINOPHIL % 1.2 % (0.0-4.0); HEMATOCRIT 33.2 % (35.0-46.0); HEMO FLAGS DIFF FINAL; LYMPH % 21.2 % (9.0-44.0); LYMPHOCYTE # 0.8 TH/MM3 (1.0-4.8); MEAN CELL VOLUME 93.2 FL (80.0-100.0); MEAN CORPUSCULAR HEMOGLOBIN 30.3 PG (27.0-34.0); MEAN CORPUSCULAR HGB CONC 32.5 % (32.0-36.0); MONO % 11.8 % (0.0-8.0); NEUT % 65.4 % (16.0-70.0); PLATELET COUNT 129 TH/MM3 (150-450); RED BLOOD COUNT 3.56 MIL/MM3 (4.00-5.30); WHITE BLOOD COUNT 3.6 TH/MM3 (4.0-11.0)
[2017-03-23] MEDS: FLUTICASONE 100 MCG/VILANTEROL 25 MCG INHALER INH SCH (09:00)
[2017-03-23] MEDS: FLUTICASONE PROPIONATE 50 MCG/ACT 16 GM NASAL SPRAY EACH NARE SCH ×2 (09:00→21:15)
[2017-03-23] MEDS: SODIUM CHLORIDE 0.9% FLUSH 10 ML FLUSH IV FLUSH SCH ×2 (09:00→20:36)
[2017-03-23 09:11] LABS: ALKALINE PHOSPHATASE 273 U/L (45-117); ALT (GPT) 1789 U/L (10-53); ANION GAP 7 MEQ/L (5-15); AST (GOT) 2164 U/L (15-37); BICARBONATE 22.6 MEQ/L (21.0-32.0); BLOOD UREA NITROGEN 8 MG/DL (7-18); CHLORIDE 108 MEQ/L (98-107); GLOMERULAR FILTRATION RATE 96 ML/MIN (>89); POTASSIUM 4.1 MEQ/L (3.5-5.1); SODIUM (NA) 138 MEQ/L (136-145); TOTAL BILIRUBIN ADULT 8.7 MG/DL (0.2-1.0)
--- NOTE | 2017-03-23 09:24 | HHI.PR ---
Subjective Remarks epigastric pains with meals diffuse arthralgia/myalgias Objective Vitals oriented heart reg lung cta abd epigastric/ruq tender/bs ext no edema/rash/synovitis. Vital Signs Date Time Temp Pulse Resp B/P Pulse Ox O2 Delivery O2 Flow Rate FiO2 03/23/17 04:00 98.4 85 20 126/74 100 03/23/17 00:00 98.0 83 20 110/68 93 03/22/17 22:43 21 03/22/17 20:00 97.9 80 20 116/64 93 03/22/17 19:45 Room Air 03/22/17 16:00 97.3 86 18 126/63 98 03/22/17 12:14 97.7 80 16 113/65 100 03/22/17 03/22/17 03/23/17 15:00 23:00 07:00 Intake Total 360 ml 940 ml Balance 360 ml 940 ml Intake Oral 360 ml 940 ml # Voids 2 2 # Bowel Movements 0 Result Diagram: 03/23/17 0740 03/23/17 0740 Imaging Last Impressions Gall Bladder Ultrasound 03/21/17 0000 Signed Impressions: Service Date/Time: March 22:48 - CONCLUSION: 1. Marked thickening of the gallbladder wall which may reflect cholecystitis. Radionuclide imaging is recommended for further evaluation if clinically indicated. Donald Weathers MD A/P Problem List: (1) Elevated LFTs Status: Acute Plan: -Pt is a 52 y/o WF with Lupus (pt is on Cellcept and Mobic), COPD, hypothyroidism, migraine headaches and hx of iron deficiency. - Pt presented with complaints of generalized weakness, nausea, subjective fever and intermittent chills, myalgias, generalized abdominal pain, constipation, bloating and fatigue which began around 3 weeks ago with left sided abdominal discomfort, increased fatigue. - Output CT Abd/pelvis W/O contrast on 03/12/17 which was negative for any renal or ureteral calculus and no evidence of obstructive uropathy. - She reports a change in her bowel habits at that time with increased constipation so she tried using Fleet enemas and Dulcolax with some bowel movements but not anything significant and no real improvement in the abd /flank pain. - Her labs on 03/21 noted Tbili 8.3, AST 1793, ALT 1909, AlkPhos 375, CRP 1.20, ESR was 7. - Autoimmune panel is pending (TIESHA, SS-A Ab/SS-B Ab, Marrero Ab, Scl-70 Ab, DS DNA Ab, RF). - Pt had a GB US performed in the ED which noted marked thickening of the gallbladder wall and borderline common duct dilation and a trace amount of free fluid surrounding the liver. - Repeat LFTs on admission...Tbili 7.5, DBili 6.2, AST 1666, ALT 1589, AlkPhos 285. - The cause for her elevated LFTs is unclear at this time, possibly secondary to medications vs. viral etiology vs. autoimmune process vs. biliary obstruction vs. other. - Tylenol level is negative. - Monoscreen is negative. - Review of outpt labs from 12/2016 noted completely normal LFTs. She denies any hx of viral hepatitis. She had been using Flexeril intermittently. Pt was recently started on Ranitidine and Rizatriptan as needed for headaches. - CMV, EBV, viral hepatitis panels are pending - Added ASMA, AMA, Ceruloplasmin, Iron studies, Ferritin, and Alpha-1- antitrypsin to autoimmune workup.d - Check MRCP shows pericholecystic fluid..nonspecific...gen surg not convinced of cholecystitis. - Check Mycophenolic acid level pending - Of note, the pt reports that she travels to [facility] every year and recently returned from a mission trip in January 2017. Rare possibility for her symptoms and elevated LFTs could be a parasitic infection. We will check stools for O&P. - She had also been taking antibiotics recently for an oral surgery she had and for a finger infection and was taking antibiotics up until 01/2017. -today lft trending up..c/o alot of myalgia/arthralgia -trial of solumedrol. - IVF - Pain control PRN, -Laxatives -PPI -f/u pending studies -GI following..?liver bx if no improvement - DVT prophylaxis with SCDs (2) Generalized weakness Status: Acute Plan: - See above. (3) Constipation Status: Acute Plan: - May be related to pain medications and immobility. - Colace BID - Lactulose (4) Lupus (systemic lupus erythematosus) Status: Chronic Plan: - Resume Cellcept at home dose of 1000mg in AM and 500mg in evening. - Hold on resuming Mobic. (5) Hypothyroidism Status: Chronic Plan: - Cont. home meds - TSH was 3.200 on 03/22/17 - Previous labs on 03/13 with TSH 0.194 and Free T4 1.33 and Synthroid was changed to 100mcg 6 days per week Yfn Merchant MD Mar 23, 2017 09:24
[2017-03-23] MEDS: DOCUSATE SODIUM 100 MG CAP PO SCH ×2 (09:36→20:36)
[2017-03-23] MEDS: LACTULOSE SYRUP 20 GM/30 ML CUP PO SCH ×2 (11:39→20:36)
[2017-03-23] MEDS: SODIUM CHLOR 0.9% 1000 ML INJ 1,000 ML IV SCH ×2 (11:41→23:47)
[2017-03-23] MEDS: PANTOPRAZOLE SODIUM 40 MG VIAL IV PUSH SCH (11:41)
[2017-03-23] MEDS ORDERED: methylPREDNISolone SOD SUCC 125 MG/2 ML VIAL IV PUSH ONE (12:00)
--- NOTE | 2017-03-23 14:14 | HHI.GIFU ---
Subjective Remarks Patient is resting in bed, accompanied by family, repots waves of nausea and constipation (PriceSina VINAY) Objective Vitals I&O Vital Signs Date Time Temp Pulse Resp B/P Pulse Ox O2 Delivery O2 Flow Rate FiO2 03/23/17 12:00 97.3 77 20 126/75 97 03/23/17 08:00 98.0 81 20 123/64 95 03/23/17 08:00 Room Air 03/23/17 04:00 98.4 85 20 126/74 100 03/23/17 00:00 98.0 83 20 110/68 93 03/22/17 22:43 21 03/22/17 20:00 97.9 80 20 116/64 93 03/22/17 19:45 Room Air 03/22/17 16:00 97.3 86 18 126/63 98 I/O 03/22/17 03/22/17 03/22/17 03/23/17 03/23/17 03/23/17 07:00 15:00 23:00 07:00 15:00 23:00 Intake Total 360 ml 940 ml Balance 360 ml 940 ml Intake Oral 360 ml 940 ml # Voids 2 2 # Bowel Movements 0 Laboratory Laboratory Tests Test 03/23/17 07:40 White Blood Count 3.6 Red Blood Count 3.56 Hemoglobin 10.8 Hematocrit 33.2 Mean Corpuscular Volume 93.2 Mean Corpuscular Hemoglobin 30.3 Mean Corpuscular Hemoglobin 32.5 Concent Red Cell Distribution Width 16.0 Platelet Count 129 Mean Platelet Volume 10.0 Neutrophils (%) (Auto) 65.4 Lymphocytes (%) (Auto) 21.2 Monocytes (%) (Auto) 11.8 Eosinophils (%) (Auto) 1.2 Basophils (%) (Auto) 0.4 Neutrophils # (Auto) 2.3 Lymphocytes # (Auto) 0.8 Monocytes # (Auto) 0.4 Eosinophils # (Auto) 0.0 Basophils # (Auto) 0.0 CBC Comment DIFF FINAL Differential Comment Erythrocyte Sedimentation Rate 8 Sodium Level 138 Potassium Level 4.1 Chloride Level 108 Carbon Dioxide Level 22.6 Anion Gap 7 Blood Urea Nitrogen 8 Creatinine 0.65 Estimat Glomerular Filtration 96 Rate Random Glucose 86 Calcium Level 7.7 Total Bilirubin 8.7 Aspartate Amino Transf 2164 (AST/SGOT) Alanine Aminotransferase 1789 (ALT/SGPT) Alkaline Phosphatase 273 Total Protein 5.0 Albumin 2.2 Complement C3 41 Complement C4 7 Date/Time Procedure Status Source Growth 03/21/17 22:20 Aerobic Blood Culture - Preliminary Resulted Blood Peripheral NO GROWTH IN 2 DAYS 03/21/17 22:20 Anaerobic Blood Culture - Preliminary Resulted Blood Peripheral NO GROWTH IN 2 DAYS Imaging Last Impressions Cholangiopancreatography MRI 03/22/17 0000 Signed Impressions: Service Date/Time: Wednesday, March 22, 2017 13:01 - CONCLUSION: Nonspecific diffuse gallbladder wall thickening and pericholecystic fluid. In the setting of ascites and pleural effusions, this finding may be related to hypoalbuminemia. No gallstones identified. Cl Trujillo MD Gall Bladder Ultrasound 03/21/17 0000 Signed Impressions: Service Date/Time: March 22:48 - CONCLUSION: 1. Marked thickening of the gallbladder wall which may reflect cholecystitis. Radionuclide imaging is recommended for further evaluation if clinically indicated. Donald Weathers MD Physical Exam HEENT: normocephalic; atraumatic; no jaundice. Throat is clear. NECK: Neck is supple, no JVD, no lymphadenopathy. CHEST: Chest is clear to auscultation and percussion. CARDIAC: Regular rate and rhythm with no murmur gallop or rubs. ABDOMEN: Soft, nondistended, epigastric tenderness; no hepatosplenomegaly; bowel sounds are present in all four quadrants. EXTREMITIES: No clubbing, cyanosis, or edema. SKIN: Normal; no rash; no jaundice. HOME THERAPY CLINICIAN: No focal deficits; alert and oriented times three. (Price,Sina EYEGLASS CUTTER) Assessment and Plan Plan ASSESSMENT - elevated LFTs, jaundice - Worsening today. hep panel neg, immunology liver w/ u pending, EBV AG Igm Ab negative, EBV nuclear AG (+) and EBV Ag IgG Ab (+) Fe 2210, iron saturation 44.6. Pt w/ hx Mylene, lupus. US suggestive cholecystitis. MRCP Nonspecific diffuse gallbladder wall thickening and pericholecystic fluid. In the setting of ascites and pleural effusions, this finding may be related to hypoalbuminemia. No gallstones identified. Gs on the case, who don't think patient symptoms are secondary to cholecystitis, therefore, no surgical intervention - abdominal pain - left side, epigastric area worse after eating. Pt with hx recent travel [facility]. stool cx pending. - Constipation - lactulose, Colace PLAN - await rest of liver w/u - await stool cx - JIMMY - if epigastric pain persists, consider EGD - If LFTs continue to be elevated, and no etiology found, consider liver bx - further recommendations to follow results above This pt seen by myself and DR Bower and this note is written on his behalf ( Sina Thrasher) Physician Comments Seen and examined, plan as above, will follow up with you. (Sahra Bower MD) Sina Thrasher Mar 23, 2017 14:14 Sahra Bower MD Mar 23, 2017 18:00
[2017-03-23] MEDS: MONTELUKAST SODIUM 10 MG TAB PO SCH (20:35)
[2017-03-23] MEDS: methylPREDNISolone SOD SUCC 125 MG/2 ML VIAL IV PUSH SCH (20:35)
[2017-03-23] MEDS: LORATADINE 10 MG TAB PO SCH (21:44)
[2017-03-23] MEDS: DULoxetine HCl DR 60 MG CAP PO SCH (21:44)
[2017-03-23] MEDS: TOPIRAMATE 100 MG TAB PO SCH (21:45)
[2017-03-24] VITALS (7 sets, daily range): BP systolic 102–123; BP diastolic 58–69; PULSE 53–68; RESP 16–20; TEMP 97.2–97.7; O2SAT 96–98
[2017-03-24] MEDS: LIOTHYRONINE SODIUM 5 MCG TAB PO SCH (06:24)
[2017-03-24] MEDS: LEVOTHYROXINE SODIUM 100 MCG TAB PO SCH (06:24)
[2017-03-24] MEDS: MYCOPHENOLATE MOFETIL 500 MG TAB PO SCH ×2 (06:24→17:47)
[2017-03-24] MEDS: MORPHINE SULFATE 4 MG/ML INJ IV PUSH PRN ×4 (06:25→21:53)
[2017-03-24] MEDS: LACTULOSE SYRUP 20 GM/30 ML CUP PO SCH (09:12)
[2017-03-24] MEDS: DULoxetine HCl DR 60 MG CAP PO SCH (09:13)
[2017-03-24] MEDS: DOCUSATE SODIUM 100 MG CAP PO SCH ×2 (09:13→21:50)
[2017-03-24] MEDS: TOPIRAMATE 100 MG TAB PO SCH (09:13)
[2017-03-24] MEDS: methylPREDNISolone SOD SUCC 125 MG/2 ML VIAL IV PUSH SCH ×2 (09:13→21:43)
[2017-03-24] MEDS: SODIUM CHLORIDE 0.9% FLUSH 10 ML FLUSH IV FLUSH SCH ×2 (09:13→21:43)
[2017-03-24] MEDS: LORATADINE 10 MG TAB PO SCH (09:13)
[2017-03-24] MEDS: MULTIVITAMINS/MINERALS THERAPEUTIC TAB PO SCH (09:13)
[2017-03-24] MEDS: FLUTICASONE 100 MCG/VILANTEROL 25 MCG INHALER INH SCH (09:14)
[2017-03-24] MEDS: FLUTICASONE PROPIONATE 50 MCG/ACT 16 GM NASAL SPRAY EACH NARE SCH ×2 (09:14→21:45)
[2017-03-24] MEDS ORDERED: MAGNESIUM CITRATE SOLN 300 ML BTL PO ONE (09:30)
[2017-03-24] MEDS ORDERED: BISACODYL EC 5 MG TABEC PO ONE (09:30)
--- NOTE | 2017-03-24 09:34 | HHI.PR ---
Subjective Remarks looks more comfortable and less joint/muscle pain with solumedrol. eating breakfast now. Objective Vitals nad oriented/no lethargy. no edema Vital Signs Date Time Temp Pulse Resp B/P Pulse Ox O2 Delivery O2 Flow Rate FiO2 03/24/17 04:00 97.7 59 16 102/63 96 03/24/17 04:00 Room Air 03/24/17 00:00 Room Air 03/24/17 00:00 97.3 53 16 118/69 97 03/23/17 20:05 58 03/23/17 20:00 97.4 64 18 123/72 99 03/23/17 20:00 Room Air 03/23/17 16:00 97.5 68 20 118/66 98 03/23/17 16:00 Room Air 03/23/17 12:00 Room Air 03/23/17 12:00 97.3 77 20 126/75 97 03/23/17 11:13 96 21 03/23/17 03/23/17 03/24/17 15:00 23:00 07:00 Intake Total 2185 ml 1357 ml 739 ml Output Total 150 ml 800 ml 0 ml Balance 2035 ml 557 ml 739 ml Intake Oral 940 ml 480 ml 0 ml IV Total 1245 ml 877 ml 739 ml Output Urine Total 150 ml 800 ml 0 ml # Voids 2 # Bowel Movements 0 0 Result Diagram: 03/23/17 0740 03/23/17 0740 Imaging Last Impressions Gall Bladder Ultrasound 03/21/17 0000 Signed Impressions: Service Date/Time: March 22:48 - CONCLUSION: 1. Marked thickening of the gallbladder wall which may reflect cholecystitis. Radionuclide imaging is recommended for further evaluation if clinically indicated. Donald Weathers MD A/P Problem List: (1) Elevated LFTs Status: Acute Plan: -Pt is a 52 y/o WF with Lupus (pt is on Cellcept and Mobic), COPD, hypothyroidism, migraine headaches and hx of iron deficiency. - Pt presented with complaints of generalized weakness, nausea, subjective fever and intermittent chills, myalgias, generalized abdominal pain, constipation, bloating and fatigue which began around 3 weeks ago with left sided abdominal discomfort, increased fatigue. - Output CT Abd/pelvis W/O contrast on 03/12/17 which was negative for any renal or ureteral calculus and no evidence of obstructive uropathy. - She reports a change in her bowel habits at that time with increased constipation so she tried using Fleet enemas and Dulcolax with some bowel movements but not anything significant and no real improvement in the abd /flank pain. - Her labs on 03/21 noted Tbili 8.3, AST 1793, ALT 1909, AlkPhos 375, CRP 1.20, ESR was 7. - Autoimmune panel is pending (TIESHA, SS-A Ab/SS-B Ab, Marrero Ab, Scl-70 Ab, DS DNA Ab, RF). - Pt had a GB US performed in the ED which noted marked thickening of the gallbladder wall and borderline common duct dilation and a trace amount of free fluid surrounding the liver. - Repeat LFTs on admission...Tbili 7.5, DBili 6.2, AST 1666, ALT 1589, AlkPhos 285. - The cause for her elevated LFTs is unclear at this time, possibly secondary to medications vs. viral etiology vs. autoimmune process vs. biliary obstruction vs. other. - Tylenol level is negative. - Monoscreen is negative. - Review of outpt labs from 12/2016 noted completely normal LFTs. She denies any hx of viral hepatitis. She had been using Flexeril intermittently. Pt was recently started on Ranitidine and Rizatriptan as needed for headaches. - CMV, EBV, viral hepatitis panels are pending - Added ASMA, AMA, Ceruloplasmin, Iron studies, Ferritin, and Alpha-1- antitrypsin to autoimmune workup.d - Check MRCP shows pericholecystic fluid..nonspecific...gen surg not convinced of cholecystitis. - Check Mycophenolic acid level pending - Of note, the pt reports that she travels to [facility] every year and recently returned from a mission trip in January 2017. Rare possibility for her symptoms and elevated LFTs could be a parasitic infection. We will check stools for O&P. - She had also been taking antibiotics recently for an oral surgery she had and for a finger infection and was taking antibiotics up until 01/2017. - Pt was c/o alot of myalgia/arthralgia yesterday and lft trending up...solumedrol initiated to cover for ?AI process/possible lupus flare..today she reports feeling much better. LFT's still pending -f/u viral and autoimmune w/up -IF LFT fail to improve the will probably need liver biopsy.. - Pain control PRN, -Laxatives -PPI - DVT prophylaxis with SCDs (2) Generalized weakness Status: Acute Plan: - See above. (3) Constipation Status: Acute Plan: - May be related to pain medications and immobility. - Colace BID - Lactulose (4) Lupus (systemic lupus erythematosus) Status: Chronic Plan: - Resume Cellcept at home dose of 1000mg in AM and 500mg in evening. - Hold on resuming Mobic. (5) Hypothyroidism Status: Chronic Plan: - Cont. home meds - TSH was 3.200 on 03/22/17 - Previous labs on 03/13 with TSH 0.194 and Free T4 1.33 and Synthroid was changed to 100mcg 6 days per week Yfn Merchant MD Mar 24, 2017 09:34
[2017-03-24 10:32] LABS: BICARBONATE 24.6 MEQ/L (21.0-32.0); INDIRECT BILIRUBIN 3.2 MG/DL (0.0-0.8); TOTAL BILIRUBIN ADULT 7.4 MG/DL (0.2-1.0)
[2017-03-24 10:38] LABS: POTASSIUM 4.8 MEQ/L (3.5-5.1)
--- NOTE | 2017-03-24 12:10 | HHI.GIFU ---
Subjective Remarks Feeling better with the steroid therapy. Objective Vitals I&O Vital Signs Date Time Temp Pulse Resp B/P Pulse Ox O2 Delivery O2 Flow Rate FiO2 03/24/17 08:00 97.5 60 20 123/65 97 03/24/17 04:00 97.7 59 16 102/63 96 03/24/17 04:00 Room Air 03/24/17 00:00 Room Air 03/24/17 00:00 97.3 53 16 118/69 97 03/23/17 20:05 58 03/23/17 20:00 97.4 64 18 123/72 99 03/23/17 20:00 Room Air 03/23/17 16:00 97.5 68 20 118/66 98 03/23/17 16:00 Room Air I/O 03/23/17 03/23/17 03/23/17 03/24/17 03/24/17 03/24/17 07:00 15:00 23:00 07:00 15:00 23:00 Intake Total 940 ml 2185 ml 1357 ml 739 ml Output Total 150 ml 800 ml 0 ml Balance 940 ml 2035 ml 557 ml 739 ml Intake Oral 940 ml 940 ml 480 ml 0 ml IV Total 1245 ml 877 ml 739 ml Output Urine Total 150 ml 800 ml 0 ml # Voids 2 2 # Bowel Movements 0 0 0 Laboratory Laboratory Tests Test 03/24/17 09:05 Sodium Level 140 Potassium Level 4.8 Chloride Level 108 Carbon Dioxide Level 24.6 Anion Gap 7 Blood Urea Nitrogen 8 Creatinine 0.72 Estimat Glomerular Filtration 85 Rate Random Glucose 127 Calcium Level 8.3 Total Bilirubin 7.4 Direct Bilirubin 4.2 Indirect Bilirubin 3.2 Aspartate Amino Transf 1184 (AST/SGOT) Alanine Aminotransferase 1587 (ALT/SGPT) Alkaline Phosphatase 279 Total Protein 5.8 Albumin 2.3 Date/Time Procedure Status Source Growth 03/21/17 22:20 Aerobic Blood Culture - Preliminary Resulted Blood Peripheral NO GROWTH IN 3 DAYS 03/21/17 22:20 Anaerobic Blood Culture - Preliminary Resulted Blood Peripheral NO GROWTH IN 3 DAYS Physical Exam HEENT: normocephalic; atraumatic; no jaundice. Throat is clear. NECK: Neck is supple, no JVD, no lymphadenopathy. CHEST: Chest is clear to auscultation and percussion. CARDIAC: Regular rate and rhythm with no murmur gallop or rubs. ABDOMEN: Soft, nondistended, epigastric tenderness; no hepatosplenomegaly; bowel sounds are present in all four quadrants. EXTREMITIES: No clubbing, cyanosis, or edema. Assessment and Plan Plan ASSESSMENT - Elevated LFTs, jaundice - Worsening today. hep panel neg, immunology liver w/ u pending, EBV AG Igm Ab negative, EBV nuclear AG (+) and EBV Ag IgG Ab (+) Fe 2210, iron saturation 44.6. Pt w/ hx Mylene, lupus. US suggestive cholecystitis. MRCP Nonspecific diffuse gallbladder wall thickening and pericholecystic fluid. In the setting of ascites and pleural effusions, this finding may be related to hypoalbuminemia. No gallstones identified. Gs on the case, who don't think patient symptoms are secondary to cholecystitis, therefore, no surgical intervention - abdominal pain - subsided - Constipation - lactulose, Colace PLAN - await rest of liver w/u - await stool cx - JIMMY - if epigastric pain persists, consider EGD - If LFTs continue to be elevated, and no etiology found, consider liver bx - further recommendations to follow results above Sahra Bower MD Mar 24, 2017 12:10
[2017-03-24] MEDS: PANTOPRAZOLE SODIUM 40 MG VIAL IV PUSH SCH (12:12)
[2017-03-24] MEDS: MONTELUKAST SODIUM 10 MG TAB PO SCH (21:43)
[2017-03-25] VITALS (8 sets, daily range): BP systolic 94–125; BP diastolic 52–76; PULSE 52–77; RESP 16–18; TEMP 97.5–98.1; O2SAT 91–98
[2017-03-25] MEDS: LIOTHYRONINE SODIUM 5 MCG TAB PO SCH (06:01)
[2017-03-25] MEDS: LEVOTHYROXINE SODIUM 100 MCG TAB PO SCH (06:01)
[2017-03-25] MEDS: MYCOPHENOLATE MOFETIL 500 MG TAB PO SCH ×2 (06:01→18:03)
[2017-03-25 07:23] LABS: TOTAL BILIRUBIN ADULT 4.9 MG/DL (0.2-1.0)
[2017-03-25 07:32] LABS: INDIRECT BILIRUBIN 0.8 MG/DL (0.0-0.8)
[2017-03-25] MEDS: SODIUM CHLORIDE 0.9% FLUSH 10 ML FLUSH IV FLUSH SCH ×2 (08:37→22:57)
[2017-03-25] MEDS: TOPIRAMATE 100 MG TAB PO SCH (08:37)
[2017-03-25] MEDS: DULoxetine HCl DR 60 MG CAP PO SCH (08:37)
[2017-03-25] MEDS: BISACODYL EC 5 MG TABEC PO SCH (08:37)
[2017-03-25] MEDS: methylPREDNISolone SOD SUCC 125 MG/2 ML VIAL IV PUSH SCH ×2 (08:38→22:52)
[2017-03-25] MEDS: LORATADINE 10 MG TAB PO SCH (08:38)
[2017-03-25] MEDS: MULTIVITAMINS/MINERALS THERAPEUTIC TAB PO SCH (08:38)
[2017-03-25] MEDS: DOCUSATE SODIUM 100 MG CAP PO SCH ×2 (08:38→22:53)
[2017-03-25] MEDS: FLUTICASONE 100 MCG/VILANTEROL 25 MCG INHALER INH SCH (08:40)
[2017-03-25] MEDS: FLUTICASONE PROPIONATE 50 MCG/ACT 16 GM NASAL SPRAY EACH NARE SCH ×2 (08:41→22:53)
[2017-03-25] MEDS: MORPHINE SULFATE 4 MG/ML INJ IV PUSH PRN ×2 (08:46→23:02)
[2017-03-25] MEDS: PANTOPRAZOLE SODIUM 40 MG VIAL IV PUSH SCH (11:07)
--- NOTE | 2017-03-25 15:26 | HHI.PR ---
Subjective Remarks Pt complaining of continued constipation and abdominal distension/pain. She had been on Lactulose daily during this admission but this was stopped on 03/24 Pt also took Mag Citrate on 03/24 without much BM production She is having less joint pain. Objective Vitals Vital Signs Date Time Temp Pulse Resp B/P Pulse Ox O2 Delivery O2 Flow Rate FiO2 03/25/17 12:00 97.8 56 18 124/76 93 03/25/17 09:56 Room Air 03/25/17 08:00 97.7 57 18 120/58 94 03/25/17 07:53 52 03/25/17 04:00 Room Air 03/25/17 04:00 97.6 60 18 118/57 91 03/25/17 00:00 Room Air 03/25/17 00:00 97.5 77 16 94/52 92 03/24/17 21:40 Room Air 03/24/17 20:00 68 03/24/17 20:00 97.2 64 18 119/62 97 03/24/17 16:00 97.4 63 20 119/58 98 03/24/17 03/24/17 03/25/17 15:00 23:00 07:00 Intake Total 480 ml 411 ml 480 ml Balance 480 ml 411 ml 480 ml Intake Oral 480 ml 80 ml 480 ml IV Total 331 ml # Voids 5 3 2 # Bowel Movements 1 0 0 Result Diagram: 03/23/17 0740 03/24/17 0905 Other Results Laboratory Tests Test 03/24/17 03/25/17 09:05 06:10 Sodium Level 140 MEQ/L Potassium Level 4.8 MEQ/L Chloride Level 108 MEQ/L Carbon Dioxide Level 24.6 MEQ/L Anion Gap 7 MEQ/L Blood Urea Nitrogen 8 MG/DL Creatinine 0.72 MG/DL Estimat Glomerular Filtration 85 ML/MIN Rate Random Glucose 127 MG/DL Calcium Level 8.3 MG/DL Total Bilirubin 7.4 MG/DL 4.9 MG/DL Direct Bilirubin 4.2 MG/DL 4.1 MG/DL Indirect Bilirubin 3.2 MG/DL 0.8 MG/DL Aspartate Amino Transf 1184 U/L 630 U/L (AST/SGOT) Alanine Aminotransferase 1587 U/L 1284 U/L (ALT/SGPT) Alkaline Phosphatase 279 U/L 277 U/L Total Protein 5.8 GM/DL 5.8 GM/DL Albumin 2.3 GM/DL 2.5 GM/DL Imaging Last Impressions Cholangiopancreatography MRI 03/22/17 0000 Signed Impressions: Service Date/Time: Wednesday, March 22, 2017 13:01 - CONCLUSION: Nonspecific diffuse gallbladder wall thickening and pericholecystic fluid. In the setting of ascites and pleural effusions, this finding may be related to hypoalbuminemia. No gallstones identified. Cl Trujillo MD Gall Bladder Ultrasound 03/21/17 0000 Signed Impressions: Service Date/Time: March 22:48 - CONCLUSION: 1. Marked thickening of the gallbladder wall which may reflect cholecystitis. Radionuclide imaging is recommended for further evaluation if clinically indicated. Donald Weathers MD Objective Remarks General: NAD, AAOx3 Chest: CTA Cardiac: Regular Abd: +BS, soft mildly distended, diffusely tender, no rebound or guarding Ext: No edema A/P Problem List: (1) Elevated LFTs Status: Acute Plan: -Pt is a 52 y/o WF with Lupus (pt is on Cellcept and Mobic), COPD, hypothyroidism, migraine headaches and hx of iron deficiency. - Pt presented with complaints of generalized weakness, nausea, subjective fever and intermittent chills, myalgias, generalized abdominal pain, constipation, bloating and fatigue which began around 3 weeks ago with left sided abdominal discomfort, increased fatigue. - Output CT Abd/pelvis W/O contrast on 03/12/17 which was negative for any renal or ureteral calculus and no evidence of obstructive uropathy. - She reports a change in her bowel habits at that time with increased constipation so she tried using Fleet enemas and Dulcolax with some bowel movements but not anything significant and no real improvement in the abd /flank pain. - Her labs on 03/21 noted Tbili 8.3, AST 1793, ALT 1909, AlkPhos 375, CRP 1.20, ESR was 7. - Autoimmune panel is pending (TIESHA, SS-A Ab/SS-B Ab, Marrero Ab, Scl-70 Ab, DS DNA Ab, RF). - Pt had a GB US performed in the ED which noted marked thickening of the gallbladder wall and borderline common duct dilation and a trace amount of free fluid surrounding the liver. - Repeat LFTs on admission were Tbili 7.5, DBili 6.2, AST 1666, ALT 1589, AlkPhos 285. - The cause for her elevated LFTs is unclear at this time, possibly secondary to medications vs. autoimmune process vs. other. - Tylenol level is negative. - Monoscreen is negative. - Review of outpt labs from 12/2016 noted completely normal LFTs. She denies any hx of viral hepatitis. She had been using Flexeril intermittently. Pt was recently started on Ranitidine and Rizatriptan as needed for headaches. - CMV IgM Ab is elevated at 53.50 but CMV IgG Ab negative. - EBV panel is consistent with past infection. Viral hepatitis panel is negative. - ASMA (negative), AMA (pending), TIESHA (negative), LKM-1 Ab (pending), Ceruloplasmin (pending) ,Ferritin (elevated at 2210), and [id number] ( pending) - MRCP shows pericholecystic fluid..nonspecific...gen surg not convinced of cholecystitis. - Mycophenolic acid level pending - Of note, the pt reports that she travels to [facility] every year and recently returned from a mission trip in January 2017. Rare possibility for her symptoms and elevated LFTs could be a parasitic infection. We will check stools for O&P. - She had also been taking antibiotics recently for an oral surgery she had and for a finger infection and was taking antibiotics up until 01/2017. - Pt was c/o a lot of myalgia/arthralgia and on 03/23 her LFTs trended up so the pt was started on Solu-Medrol to cover for ?AI process/possible lupus flare - Pts LFTs have been trending down and pt overall has been improving clinically. - Await Autoimmune w/up labs - GI following - Monitor LFTs daily. If LFTs fail to improve or if LKM-1 Ab is negative, the pt will probably need liver biopsy. - Pain control PRN - Cont. Laxatives per GI - KUB today - PPI - DVT prophylaxis with SCDs (2) Generalized weakness Status: Acute Plan: - See above. (3) Constipation Status: Acute Plan: - May be related to pain medications and immobility. - Colace BID - Lactulose (4) Lupus (systemic lupus erythematosus) Status: Chronic Plan: - Resume Cellcept at home dose of 1000mg in AM and 500mg in evening. - Hold on resuming Mobic. (5) Hypothyroidism Status: Chronic Plan: - Cont. home meds - TSH was 3.200 on 03/22/17 - Previous labs on 03/13 with TSH 0.194 and Free T4 1.33 and Synthroid was changed to 100mcg 6 days per week Assessment and Plan Patient examined. Assessment and plan formulated with Suzie Juan PA-C. I agree with the above. Suzie Juan Mar 25, 2017 15:26 Jack Pablo DO Mar 27, 2017 21:54
--- NOTE | 2017-03-25 16:08 | HHI.GIFU ---
Subjective Remarks Pt resting in bed in no apparent distress. C/o of abdominal distension and had scant hard BM this morning. She is also having hemorrhoid pain. She has already tried lactulose, mag citrate, prune juice. no n/v. (Jenna Webb) Objective Vitals I&O Vital Signs Date Time Temp Pulse Resp B/P Pulse Ox O2 Delivery O2 Flow Rate FiO2 03/25/17 12:00 97.8 56 18 124/76 93 03/25/17 12:00 Room Air 03/25/17 09:56 Room Air 03/25/17 08:00 97.7 57 18 120/58 94 03/25/17 07:53 52 03/25/17 04:00 Room Air 03/25/17 04:00 97.6 60 18 118/57 91 03/25/17 00:00 Room Air 03/25/17 00:00 97.5 77 16 94/52 92 03/24/17 21:40 Room Air 03/24/17 20:00 68 03/24/17 20:00 97.2 64 18 119/62 97 I/O 03/24/17 03/24/17 03/24/17 03/25/17 03/25/17 03/25/17 07:00 15:00 23:00 07:00 15:00 23:00 Intake Total 739 ml 480 ml 411 ml 480 ml Output Total 0 ml Balance 739 ml 480 ml 411 ml 480 ml Intake Oral 0 ml 480 ml 80 ml 480 ml IV Total 739 ml 331 ml Output Urine Total 0 ml # Voids 5 3 2 # Bowel Movements 0 1 0 0 Laboratory Laboratory Tests Test 03/25/17 06:10 Total Bilirubin 4.9 Direct Bilirubin 4.1 Indirect Bilirubin 0.8 Aspartate Amino Transf 630 (AST/SGOT) Alanine Aminotransferase 1284 (ALT/SGPT) Alkaline Phosphatase 277 Total Protein 5.8 Albumin 2.5 Date/Time Procedure Status Source Growth 03/21/17 22:20 Aerobic Blood Culture - Preliminary Resulted Blood Peripheral NO GROWTH IN 4 DAYS 03/21/17 22:20 Anaerobic Blood Culture - Preliminary Resulted Blood Peripheral NO GROWTH IN 4 DAYS Imaging Last Impressions Cholangiopancreatography MRI 03/22/17 0000 Signed Impressions: Service Date/Time: Wednesday, March 22, 2017 13:01 - CONCLUSION: Nonspecific diffuse gallbladder wall thickening and pericholecystic fluid. In the setting of ascites and pleural effusions, this finding may be related to hypoalbuminemia. No gallstones identified. Cl Trujillo MD Gall Bladder Ultrasound 03/21/17 0000 Signed Impressions: Service Date/Time: , March 21, 2017 22:48 - CONCLUSION: 1. Marked thickening of the gallbladder wall which may reflect cholecystitis. Radionuclide imaging is recommended for further evaluation if clinically indicated. Donald Weathers MD Physical Exam HEENT: normocephalic; atraumatic; no jaundice. CHEST: Chest is clear to auscultation and percussion. CARDIAC: Regular rate and rhythm with no murmur gallop or rubs. ABDOMEN: Soft, nondistended, epigastric tenderness; no hepatosplenomegaly; bowel sounds are present in all four quadrants. EXTREMITIES: No clubbing, cyanosis, or edema. SKIN: normal, no rash INSOLE LIP TURNER: AOx3 (Jenna Webb) Assessment and Plan Plan ASSESSMENT - Elevated LFTs, jaundice - improving, steroids.. hep panel neg, TIESHA neg, ASMA neg, MA pending, EBV AG Igm Ab negative, EBV nuclear AG (+) and EBV Ag IgG Ab ( +), CMV IgM 53.5, CMV IgG neg. Fe 2210, iron saturation 44.6. Pt w/ hx Mylene, lupus. US suggestive cholecystitis. MRCP Nonspecific diffuse gallbladder wall thickening and pericholecystic fluid. In the setting of ascites and pleural effusions, this finding may be related to hypoalbuminemia. No gallstones identified. Gs on the case, who don't think patient symptoms are secondary to cholecystitis, therefore, no surgical intervention - abdominal pain - subsided - Constipation - not improved. lactulose, Colace. PLAN - await rest of liver w/u - await stool cx - KUB - GoLytely - mineral oil enema - anusol - JIMMY - If LFTs continue to be elevated, and no etiology found, consider liver bx - further recommendations to follow results above (Jenna Webb) Physician Comments Agree with the plan as above, will follow up with you. (Sahra Bower MD) Jenna Webb Mar 25, 2017 16:08 Sahra Bower MD Mar 25, 2017 22:17
--- NOTE | 2017-03-25 16:58 | RADRPT ---
EXAM DATE/TIME: 03/25/2017 16:04 [facility] COMPARISON: No previous studies available for comparison. INDICATIONS : Abdomen pain MEDICAL HISTORY : Constipation SURGICAL HISTORY : None. ENCOUNTER: Initial ACUITY: 2 weeks PAIN SCORE: 3/10 LOCATION: Abdomeng FINDINGS: Supine view of the abdomen was performed. The abdominal bowel gas pattern is normal. No abnormal ma sses, calcifications, or organomegaly is seen. The osseous structures are unremarkable. CONCLUSION: Normal examination. Vasiliy Saini Jr., MD on March 25, 2017 at 16:55 Board Certified Radiologist. This report was verified electronically.
[2017-03-25] MEDS ORDERED: MINERAL OIL ENEMA 118 ML BTL RECTAL ONE (17:00)
[2017-03-25] MEDS ORDERED: PEG (High)/E-LYTE SOLN 4000 ML BTL PO ONE (17:00)
[2017-03-25] MEDS ORDERED: METHYLNALTREXONE BROMIDE 12 MG/0.6 ML VIAL SQ ONE (20:15)
[2017-03-25] MEDS: MONTELUKAST SODIUM 10 MG TAB PO SCH (22:53)
[2017-03-25] MEDS: HYDROCORTISONE ACETATE 25 MG SUPP RECTAL SCH (22:53)
[2017-03-25] MEDS: ONDANSETRON HCL 4 MG/2 ML VIAL IV PUSH PRN (23:13)
[2017-03-26] VITALS (7 sets, daily range): BP systolic 101–123; BP diastolic 56–70; PULSE 47–67; RESP 16–18; TEMP 97.8–98.3; O2SAT 92–95
[2017-03-26] MEDS: LEVOTHYROXINE SODIUM 100 MCG TAB PO SCH (06:17)
[2017-03-26] MEDS: MYCOPHENOLATE MOFETIL 500 MG TAB PO SCH ×2 (06:18→17:09)
[2017-03-26] MEDS: LIOTHYRONINE SODIUM 5 MCG TAB PO SCH (06:18)
[2017-03-26 08:30] LABS: AST (GOT) 315 U/L (15-37); GLOMERULAR FILTRATION RATE 94 ML/MIN (>89)
[2017-03-26 08:33] LABS: AUTOMATED NEUTROPHIL # 8.5 TH/MM3 (1.8-7.7); BASOPHIL % 0.3 % (0.0-2.0); HEMATOCRIT 31.6 % (35.0-46.0); HEMO FLAGS DIFF FINAL; LYMPH % 7.5 % (9.0-44.0); LYMPHOCYTE # 0.7 TH/MM3 (1.0-4.8); MEAN CELL VOLUME 92.2 FL (80.0-100.0); MEAN CORPUSCULAR HEMOGLOBIN 30.5 PG (27.0-34.0); MEAN CORPUSCULAR HGB CONC 33.1 % (32.0-36.0); MONO % 7.2 % (0.0-8.0); PLATELET COUNT 189 TH/MM3 (150-450); RED BLOOD COUNT 3.43 MIL/MM3 (4.00-5.30); RED CELL DISTRIBUTION WIDTH 16.6 % (11.6-17.2)
[2017-03-26 08:41] LABS: ALKALINE PHOSPHATASE 257 U/L (45-117); ALT (GPT) 997 U/L (10-53); ANION GAP 8 MEQ/L (5-15); BLOOD UREA NITROGEN 15 MG/DL (7-18); CHLORIDE 109 MEQ/L (98-107); SODIUM (NA) 142 MEQ/L (136-145); TOTAL BILIRUBIN ADULT 2.7 MG/DL (0.2-1.0)
[2017-03-26] MEDS: methylPREDNISolone SOD SUCC 125 MG/2 ML VIAL IV PUSH SCH ×2 (09:12→21:37)
[2017-03-26] MEDS: MULTIVITAMINS/MINERALS THERAPEUTIC TAB PO SCH (09:13)
[2017-03-26] MEDS: DULoxetine HCl DR 60 MG CAP PO SCH (09:13)
[2017-03-26] MEDS: LORATADINE 10 MG TAB PO SCH (09:13)
[2017-03-26] MEDS: SODIUM CHLORIDE 0.9% FLUSH 10 ML FLUSH IV FLUSH SCH ×2 (09:13→21:36)
[2017-03-26] MEDS: TOPIRAMATE 100 MG TAB PO SCH (09:13)
[2017-03-26] MEDS: HYDROCORTISONE ACETATE 25 MG SUPP RECTAL SCH ×2 (09:13→21:37)
[2017-03-26] MEDS: FLUTICASONE PROPIONATE 50 MCG/ACT 16 GM NASAL SPRAY EACH NARE SCH ×2 (09:17→21:36)
[2017-03-26] MEDS: FLUTICASONE 100 MCG/VILANTEROL 25 MCG INHALER INH SCH (09:17)
[2017-03-26] MEDS: DOCUSATE SODIUM 100 MG CAP PO SCH ×2 (09:24→21:37)
[2017-03-26] MEDS: BISACODYL EC 5 MG TABEC PO SCH (09:24)
[2017-03-26] MEDS: MORPHINE SULFATE 4 MG/ML INJ IV PUSH PRN ×3 (09:30→22:54)
[2017-03-26] MEDS: PANTOPRAZOLE SODIUM 40 MG VIAL IV PUSH SCH (12:51)
--- NOTE | 2017-03-26 15:39 | HHI.PR ---
Subjective Remarks Pt reports that she had several BMs last night and is much less bloated and abdominal pain is improving. She is still having some LUQ sharp abdominal pains Tolerating diet Afebrile. Objective Vitals Vital Signs Date Time Temp Pulse Resp B/P Pulse Ox O2 Delivery O2 Flow Rate FiO2 03/26/17 12:00 98.0 67 18 123/67 92 03/26/17 09:24 Room Air 03/26/17 08:00 98.2 50 18 123/70 94 03/26/17 08:00 47 03/26/17 04:00 98.3 50 16 112/60 93 03/26/17 00:00 97.8 56 16 101/56 92 03/25/17 20:15 55 03/25/17 20:00 97.8 54 16 125/69 98 03/25/17 16:00 98.1 60 18 120/70 95 03/25/17 16:00 Room Air 03/25/17 03/25/17 03/26/17 15:00 23:00 07:00 Intake Total 960 ml Output Total 400 ml Balance 560 ml Intake Oral 960 ml Output Urine Total 400 ml # Voids 1 # Bowel Movements 0 1 Result Diagram: 03/26/17 0723 03/26/17 0723 Other Results Laboratory Tests Test 03/25/17 03/26/17 06:10 07:23 Total Bilirubin 4.9 MG/DL 2.7 MG/DL Direct Bilirubin 4.1 MG/DL Indirect Bilirubin 0.8 MG/DL Aspartate Amino Transf 630 U/L 315 U/L (AST/SGOT) Alanine Aminotransferase 1284 U/L 997 U/L (ALT/SGPT) Alkaline Phosphatase 277 U/L 257 U/L Total Protein 5.8 GM/DL 5.7 GM/DL Albumin 2.5 GM/DL 2.4 GM/DL White Blood Count 10.0 TH/MM3 Red Blood Count 3.43 MIL/MM3 Hemoglobin 10.5 GM/DL Hematocrit 31.6 % Mean Corpuscular Volume 92.2 FL Mean Corpuscular Hemoglobin 30.5 PG Mean Corpuscular Hemoglobin 33.1 % Concent Red Cell Distribution Width 16.6 % Platelet Count 189 TH/MM3 Mean Platelet Volume 10.2 FL Neutrophils (%) (Auto) 85.0 % Lymphocytes (%) (Auto) 7.5 % Monocytes (%) (Auto) 7.2 % Eosinophils (%) (Auto) 0.0 % Basophils (%) (Auto) 0.3 % Neutrophils # (Auto) 8.5 TH/MM3 Lymphocytes # (Auto) 0.7 TH/MM3 Monocytes # (Auto) 0.7 TH/MM3 Eosinophils # (Auto) 0.0 TH/MM3 Basophils # (Auto) 0.0 TH/MM3 CBC Comment DIFF FINAL Differential Comment Sodium Level 142 MEQ/L Potassium Level 4.0 MEQ/L Chloride Level 109 MEQ/L Carbon Dioxide Level 25.0 MEQ/L Anion Gap 8 MEQ/L Blood Urea Nitrogen 15 MG/DL Creatinine 0.66 MG/DL Estimat Glomerular Filtration 94 ML/MIN Rate Random Glucose 126 MG/DL Calcium Level 7.7 MG/DL Imaging Last Impressions Cholangiopancreatography MRI 03/22/17 0000 Signed Impressions: Service Date/Time: Wednesday, March 22, 2017 13:01 - CONCLUSION: Nonspecific diffuse gallbladder wall thickening and pericholecystic fluid. In the setting of ascites and pleural effusions, this finding may be related to hypoalbuminemia. No gallstones identified. Cl Trujillo MD Gall Bladder Ultrasound 03/21/17 0000 Signed Impressions: Service Date/Time: March 22:48 - CONCLUSION: 1. Marked thickening of the gallbladder wall which may reflect cholecystitis. Radionuclide imaging is recommended for further evaluation if clinically indicated. Donald Weathers MD Objective Remarks General: NAD, AAOx3 Chest: CTA Cardiac: Regular Abd: +BS, soft less distended, no rebound or guarding Ext: No edema A/P Problem List: (1) Elevated LFTs Status: Acute Plan: -Pt is a 52 y/o WF with Lupus (pt is on Cellcept and Mobic), COPD, hypothyroidism, migraine headaches and hx of iron deficiency. - Pt presented with complaints of generalized weakness, nausea, subjective fever and intermittent chills, myalgias, generalized abdominal pain, constipation, bloating and fatigue which began around 3 weeks ago with left sided abdominal discomfort, increased fatigue. - Output CT Abd/pelvis W/O contrast on 03/12/17 which was negative for any renal or ureteral calculus and no evidence of obstructive uropathy. - She reports a change in her bowel habits at that time with increased constipation so she tried using Fleet enemas and Dulcolax with some bowel movements but not anything significant and no real improvement in the abd /flank pain. - Her labs on 03/21 noted Tbili 8.3, AST 1793, ALT 1909, AlkPhos 375, CRP 1.20, ESR was 7. - Autoimmune panel is pending (TIESHA, SS-A Ab/SS-B Ab, Marrero Ab, Scl-70 Ab, DS DNA Ab, RF). - Pt had a GB US performed in the ED which noted marked thickening of the gallbladder wall and borderline common duct dilation and a trace amount of free fluid surrounding the liver. - Repeat LFTs on admission were Tbili 7.5, DBili 6.2, AST 1666, ALT 1589, AlkPhos 285. - The cause for her elevated LFTs is unclear at this time, possibly secondary to medications vs. autoimmune process vs. other. - Tylenol level is negative. - Monoscreen is negative. - Review of outpt labs from 12/2016 noted completely normal LFTs. She denies any hx of viral hepatitis. She had been using Flexeril intermittently. Pt was recently started on Ranitidine and Rizatriptan as needed for headaches. - CMV IgM Ab is elevated at 53.50 but CMV IgG Ab negative. - EBV panel is consistent with past infection. Viral hepatitis panel is negative. - ASMA (negative), AMA (pending), TIESHA (negative), LKM-1 Ab (pending), Ceruloplasmin (pending) ,Ferritin (elevated at 2210), and [id number] ( pending) - MRCP shows pericholecystic fluid..nonspecific...gen surg not convinced of cholecystitis. - Mycophenolic acid level pending - Of note, the pt reports that she travels to [facility] every year and recently returned from a mission trip in January 2017. Rare possibility for her symptoms and elevated LFTs could be a parasitic infection. We will check stools for O&P. - She had also been taking antibiotics recently for an oral surgery she had and for a finger infection and was taking antibiotics up until 01/2017. - Pt was c/o a lot of myalgia/arthralgia and on 03/23 her LFTs trended up so the pt was started on Solu-Medrol 60mg Iv Q12H on 03/23/17 to cover for ?AI process/ possible lupus flare and pts LFTs have been trending down and pt overall has been improving clinically. - Await Autoimmune w/up labs - GI following - Monitor LFTs daily. If LKM-1 Ab is negative, the pt may need liver biopsy. - Pain control PRN - Pt had complained of constipation. KUB (03/25) noted a normal bowel gas pattern. Pt was given Relistor on 03/25. She was also given GoLytely and mineral oil enema on 03/25 with resulting BMs on 03/25. Pt still with some LUQ pain ?gas pains, give Simethicone 125mg Q8H - PPI - DVT prophylaxis with SCDs (2) Generalized weakness Status: Acute Plan: - See above. (3) Constipation Status: Acute Plan: - May be related to pain medications and immobility. - See above. - Cont. Colace BID (4) Lupus (systemic lupus erythematosus) Status: Chronic Plan: - Resume Cellcept at home dose of 1000mg in AM and 500mg in evening. - Hold on resuming Mobic. (5) Hypothyroidism Status: Chronic Plan: - Cont. home meds - TSH was 3.200 on 03/22/17 - Previous labs on 03/13 with TSH 0.194 and Free T4 1.33 and Synthroid was changed to 100mcg 6 days per week Assessment and Plan Patient examined. Assessment and plan formulated with Suzie Juan PA-C. I agree with the above. Suzie Juan Mar 26, 2017 15:39 Jack Pablo DO Mar 27, 2017 21:55
[2017-03-26] MEDS: SIMETHICONE 125 MG CHEWABLE TAB PO SCH ×2 (18:10→21:37)
[2017-03-26] MEDS: MONTELUKAST SODIUM 10 MG TAB PO SCH (21:37)
[2017-03-27] VITALS (7 sets, daily range): BP systolic 125–139; BP diastolic 67–75; PULSE 50–78; RESP 16–18; TEMP 97.5–98; O2SAT 92–97
[2017-03-27] MEDS: MYCOPHENOLATE MOFETIL 500 MG TAB PO SCH ×2 (05:56→17:23)
[2017-03-27] MEDS: SIMETHICONE 125 MG CHEWABLE TAB PO SCH ×3 (05:56→21:20)
[2017-03-27] MEDS: LEVOTHYROXINE SODIUM 100 MCG TAB PO SCH (05:56)
[2017-03-27] MEDS: LIOTHYRONINE SODIUM 5 MCG TAB PO SCH (05:56)
[2017-03-27] MEDS: MORPHINE SULFATE 4 MG/ML INJ IV PUSH PRN (05:57)
[2017-03-27 08:00] LABS: CALCIUM-PROTEIN CORRECTED 8.3 MG/DL (8.5-10.1); POTASSIUM 3.8 MEQ/L (3.5-5.1)
[2017-03-27] MEDS: SODIUM CHLORIDE 0.9% FLUSH 10 ML FLUSH IV FLUSH SCH ×2 (09:00→21:21)
[2017-03-27] MEDS: BISACODYL EC 5 MG TABEC PO SCH (09:11)
[2017-03-27] MEDS: methylPREDNISolone SOD SUCC 125 MG/2 ML VIAL IV PUSH SCH (09:11)
[2017-03-27] MEDS: DOCUSATE SODIUM 100 MG CAP PO SCH ×2 (09:11→21:20)
[2017-03-27] MEDS: DULoxetine HCl DR 60 MG CAP PO SCH (09:11)
[2017-03-27] MEDS: MULTIVITAMINS/MINERALS THERAPEUTIC TAB PO SCH (09:11)
[2017-03-27] MEDS: TOPIRAMATE 100 MG TAB PO SCH (09:11)
[2017-03-27] MEDS: LORATADINE 10 MG TAB PO SCH (09:11)
[2017-03-27] MEDS: FLUTICASONE PROPIONATE 50 MCG/ACT 16 GM NASAL SPRAY EACH NARE SCH ×2 (09:12→21:22)
[2017-03-27] MEDS: FLUTICASONE 100 MCG/VILANTEROL 25 MCG INHALER INH SCH (09:12)
[2017-03-27] MEDS: HYDROCORTISONE ACETATE 25 MG SUPP RECTAL SCH ×2 (09:12→21:21)
[2017-03-27] MEDS ORDERED: ACETAMINOPHEN/HYDROcodone 325 MG/5 MG TAB PO PRN (10:00)
--- NOTE | 2017-03-27 10:02 | HHI.PR ---
Subjective Remarks Pt reports that her abdominal pain is improving. The Simethicone helped with the gas pains. She had some shoulder pain this morning which she took the IV Morphine for. Objective Vitals Vital Signs Date Time Temp Pulse Resp B/P Pulse Ox O2 Delivery O2 Flow Rate FiO2 03/27/17 08:00 97.8 72 18 133/75 93 03/27/17 04:00 97.9 50 16 125/67 92 03/27/17 00:00 97.5 52 16 93 03/26/17 20:35 53 03/26/17 20:00 93 Room Air 03/26/17 20:00 98.1 55 18 121/69 93 03/26/17 16:00 98.0 59 18 121/64 95 03/26/17 16:00 Room Air 03/26/17 13:00 Room Air 03/26/17 12:00 98.0 67 18 123/67 92 03/26/17 03/26/17 03/27/17 15:00 23:00 07:00 Intake Total 720 ml 240 ml 240 ml Output Total 1000 ml 1150 ml 250 ml Balance -280 ml -910 ml -10 ml Intake Oral 720 ml 240 ml 240 ml Output Urine Total 1000 ml 1150 ml 250 ml # Bowel Movements 0 0 0 Result Diagram: 03/26/17 0723 03/27/17 0646 Other Results Laboratory Tests Test 03/26/17 03/27/17 07:23 06:46 White Blood Count 10.0 TH/MM3 Red Blood Count 3.43 MIL/MM3 Hemoglobin 10.5 GM/DL Hematocrit 31.6 % Mean Corpuscular Volume 92.2 FL Mean Corpuscular Hemoglobin 30.5 PG Mean Corpuscular Hemoglobin 33.1 % Concent Red Cell Distribution Width 16.6 % Platelet Count 189 TH/MM3 Mean Platelet Volume 10.2 FL Neutrophils (%) (Auto) 85.0 % Lymphocytes (%) (Auto) 7.5 % Monocytes (%) (Auto) 7.2 % Eosinophils (%) (Auto) 0.0 % Basophils (%) (Auto) 0.3 % Neutrophils # (Auto) 8.5 TH/MM3 Lymphocytes # (Auto) 0.7 TH/MM3 Monocytes # (Auto) 0.7 TH/MM3 Eosinophils # (Auto) 0.0 TH/MM3 Basophils # (Auto) 0.0 TH/MM3 CBC Comment DIFF FINAL Differential Comment Sodium Level 142 MEQ/L 142 MEQ/L Potassium Level 4.0 MEQ/L 3.8 MEQ/L Chloride Level 109 MEQ/L 108 MEQ/L Carbon Dioxide Level 25.0 MEQ/L 26.0 MEQ/L Anion Gap 8 MEQ/L 8 MEQ/L Blood Urea Nitrogen 15 MG/DL 15 MG/DL Creatinine 0.66 MG/DL 0.77 MG/DL Estimat Glomerular Filtration 94 ML/MIN 79 ML/MIN Rate Random Glucose 126 MG/DL 162 MG/DL Calcium Level 7.7 MG/DL 7.4 MG/DL Total Bilirubin 2.7 MG/DL 2.0 MG/DL Aspartate Amino Transf 315 U/L 163 U/L (AST/SGOT) Alanine Aminotransferase 997 U/L 744 U/L (ALT/SGPT) Alkaline Phosphatase 257 U/L 231 U/L Total Protein 5.7 GM/DL 5.4 GM/DL Albumin 2.4 GM/DL 2.2 GM/DL Protein Corrected Calcium 8.3 MG/DL Imaging Last Impressions Cholangiopancreatography MRI 03/22/17 0000 Signed Impressions: Service Date/Time: Wednesday, March 22, 2017 13:01 - CONCLUSION: Nonspecific diffuse gallbladder wall thickening and pericholecystic fluid. In the setting of ascites and pleural effusions, this finding may be related to hypoalbuminemia. No gallstones identified. Cl Trujillo MD Gall Bladder Ultrasound 03/21/17 0000 Signed Impressions: Service Date/Time: March 22:48 - CONCLUSION: 1. Marked thickening of the gallbladder wall which may reflect cholecystitis. Radionuclide imaging is recommended for further evaluation if clinically indicated. Donald Weathers MD Objective Remarks General: NAD, AAOx3 Chest: CTA Cardiac: Regular Abd: +BS, non-distended, nontender, no rebound or guarding Ext: No edema A/P Problem List: (1) Elevated LFTs Status: Acute Plan: -Pt is a 52 y/o WF with Lupus (pt is on Cellcept and Mobic), COPD, hypothyroidism, migraine headaches and hx of iron deficiency. - Pt presented with complaints of generalized weakness, nausea, subjective fever and intermittent chills, myalgias, generalized abdominal pain, constipation, bloating and fatigue which began around 3 weeks ago with left sided abdominal discomfort, increased fatigue. - Output CT Abd/pelvis W/O contrast on 03/12/17 which was negative for any renal or ureteral calculus and no evidence of obstructive uropathy. - She reports a change in her bowel habits at that time with increased constipation so she tried using Fleet enemas and Dulcolax with some bowel movements but not anything significant and no real improvement in the abd /flank pain. - Her labs on 03/21 noted Tbili 8.3, AST 1793, ALT 1909, AlkPhos 375, CRP 1.20, ESR was 7. - Autoimmune panel is pending (TIESHA, SS-A Ab/SS-B Ab, Marrero Ab, Scl-70 Ab, DS DNA Ab, RF). - Pt had a GB US performed in the ED which noted marked thickening of the gallbladder wall and borderline common duct dilation and a trace amount of free fluid surrounding the liver. - Repeat LFTs on admission were Tbili 7.5, DBili 6.2, AST 1666, ALT 1589, AlkPhos 285. - The cause for her elevated LFTs is unclear at this time, possibly secondary to autoimmune process vs. medications vs. other. - Tylenol level is negative. - Monoscreen is negative. - Review of outpt labs from 12/2016 noted completely normal LFTs. She denies any hx of viral hepatitis. She had been using Flexeril intermittently. Pt was recently started on Ranitidine and Rizatriptan as needed for headaches. - CMV IgM Ab is elevated at 53.50 but CMV IgG Ab negative. - EBV panel is consistent with past infection. Viral hepatitis panel is negative. - ASMA (negative), AMA (pending), TIESHA (negative), LKM-1 Ab (pending), Ceruloplasmin (pending) ,Ferritin (elevated at 2210), and [id number] ( pending) - MRCP shows pericholecystic fluid..nonspecific...gen surg not convinced of cholecystitis. - Mycophenolic acid level pending - Of note, the pt reports that she travels to [facility] every year and recently returned from a mission trip in January 2017. Rare possibility for her symptoms and elevated LFTs could be a parasitic infection. We will check stools for O&P. - She had also been taking antibiotics recently for an oral surgery she had and for a finger infection and was taking antibiotics up until 01/2017. - Pt was c/o a lot of myalgia/arthralgia and on 03/23 her LFTs trended up so the pt was started on Solu-Medrol 60mg Iv Q12H on 03/23/17 to cover for ?AI process/ possible lupus flare and pts LFTs have been trending down and pt overall has been improving clinically. - Await Autoimmune w/up labs - GI following - Monitor LFTs daily. If LKM-1 Ab is negative, the pt may need liver biopsy. - Pain control PRN - Pt had complained of constipation. KUB (03/25) noted a normal bowel gas pattern. Pt was given Relistor on 03/25. She was also given GoLytely and mineral oil enema on 03/25 with resulting BMs on 03/25. Pt still some LUQ pain which improved with Simethicone 125mg Q8H - Will discuss with GI timing for changing to oral steroids and to determine if liver biopsy will be necessary or not as an inpatient. - PPI - DVT prophylaxis with SCDs (2) Generalized weakness Status: Acute Plan: - See above. (3) Constipation Status: Acute Plan: - May be related to pain medications and immobility. - See above. - Cont. Colace BID and Dulcolax daily (4) Lupus (systemic lupus erythematosus) Status: Chronic Plan: - Resume Cellcept at home dose of 1000mg in AM and 500mg in evening. - Hold on resuming Mobic. (5) Hypothyroidism Status: Chronic Plan: - Cont. home meds - TSH was 3.200 on 03/22/17 - Previous labs on 03/13 with TSH 0.194 and Free T4 1.33 and Synthroid was changed to 100mcg 6 days per week Assessment and Plan Patient examined. Assessment and plan formulated with Suzie Juan PA-C. I agree with the above. Will change IV solumedrol to PO prednisone. Repeat LFTs in AM Anticipate additional labs for autoimmune hepatitis will take some time to result. Pt now c/o cough. I did NOT here her cough during visit, but will obtain CXR. Pt c/o some difficulty with food getting hung up when she swallows. will make pt NPO after MN for EGD, r/o esophageal stricture. Possible esophageal dilation. Pt already on PPI portable CXR shows b/l pleural effusions, small obtain b/l chest US with markings for possible thoracentesis If pt remains stable, then I anticipate d/c to home 03/28 Case d/w Dr. Bower (03/27/17) Suzie Juan Mar 27, 2017 10:02 Jack Pablo DO Mar 27, 2017 11:16
--- NOTE | 2017-03-27 16:55 | RADRPT ---
EXAM DATE/TIME: 03/27/2017 16:15 [facility] COMPARISON: ABDOMEN KUB ONLY, March 25, 2017, 16:04. INDICATIONS : Short of breath. MEDICAL HISTORY : Lupus. Hiatal hernia. Hypothyroidism. asthma, anemia SURGICAL HISTORY : Hysterectomy. ENCOUNTER: Initial ACUITY: 3 days PAIN SCORE: 0/10 LOCATION: Bilateral chest FINDINGS: The heart is normal in size. There are bilateral pleural effusions and minimal atelectatic changes in the lung bases. The bony structures are intact. CONCLUSION: 1. Bilateral pleural effusions. There are atelectatic changes within the lung bases as well. Michele Farrell MD on March 27, 2017 at 16:52 Board Certified Radiologist. This report was verified electronically.
[2017-03-27] MEDS: ACETAMINOPHEN/HYDROcodone 325 MG/5 MG TAB PO PRN ×2 (17:23→21:20)
[2017-03-27] MEDS: predniSONE 20 MG TAB PO SCH (21:20)
[2017-03-27] MEDS: MONTELUKAST SODIUM 10 MG TAB PO SCH (21:20)
[2017-03-28] VITALS (9 sets, daily range): BP systolic 131–159; BP diastolic 68–89; PULSE 46–65; RESP 18; TEMP 97.5–98; O2SAT 93–96
--- NOTE | 2017-03-28 00:31 | RADRPT ---
EXAM DATE/TIME: 03/27/2017 23:08 [facility] COMPARISON: No previous studies available for comparison. INDICATIONS : Pleural effusion. MEDICAL HISTORY : Lupus. Hernia, hiatal. Hypothyroidism. Asthma. Anemia. Depression. Anxiety. SURGICAL HISTORY : Tubal ligation. ENCOUNTER: Initial ACUITY: 1 day PAIN SCORE: 3/10 LOCATION: Left chest MEASUREMENTS: SKIN TO PARIETAL PLEURA: 1.9 cm SKIN TO MAX SAFE DEPTH: 3.0 cm ESTIMATED FLUID VOLUME: 368 cc FLUID COMPOSITION: simple FINDINGS: Pleural effusion as above. A britt was placed on the skin surface superficial to the pleural fluid col lection. CONCLUSION: Successful examination. Demetrius Ruth MD on March 28, 2017 at 0:29 Board Certified Radiologist. This report was verified electronically.
--- NOTE | 2017-03-28 00:33 | RADRPT ---
EXAM DATE/TIME: 03/27/2017 23:12 [facility] COMPARISON: No previous studies available for comparison. INDICATIONS : Pleural effusion. MEDICAL HISTORY : Lupus. Hernia, hiatal. Hypothyroidism. Asthma. Anemia. Depression. Anxiety. SURGICAL HISTORY : Tubal ligation. ENCOUNTER: Initial ACUITY: 1 day PAIN SCORE: 3/10 LOCATION: Right chest MEASUREMENTS: SKIN TO PARIETAL PLEURA: 1.6 cm SKIN TO MAX SAFE DEPTH: 2.5 cm ESTIMATED FLUID VOLUME: 452 cc FLUID COMPOSITION: simple FINDINGS: Pleural effusion as above. A britt was placed on the skin surface superficial to the pleural fluid col lection. CONCLUSION: Normal examination. Demetrius Ruth MD on March 28, 2017 at 0:31 Board Certified Radiologist. This report was verified electronically.
[2017-03-28] MEDS: SIMETHICONE 125 MG CHEWABLE TAB PO SCH ×3 (05:20→21:32)
[2017-03-28] MEDS: MYCOPHENOLATE MOFETIL 500 MG TAB PO SCH ×2 (05:21→18:12)
[2017-03-28] MEDS: ACETAMINOPHEN/HYDROcodone 325 MG/5 MG TAB PO PRN ×4 (05:21→22:29)
[2017-03-28] MEDS: LEVOTHYROXINE SODIUM 100 MCG TAB PO SCH (05:21)
[2017-03-28] MEDS: LIOTHYRONINE SODIUM 5 MCG TAB PO SCH (05:22)
[2017-03-28 08:18] LABS: ALT (GPT) 586 U/L (10-53); ANION GAP 9 MEQ/L (5-15); AST (GOT) 113 U/L (15-37); BICARBONATE 26.1 MEQ/L (21.0-32.0); BLOOD UREA NITROGEN 16 MG/DL (7-18); CHLORIDE 108 MEQ/L (98-107); GLOMERULAR FILTRATION RATE 99 ML/MIN (>89); POTASSIUM 3.5 MEQ/L (3.5-5.1); SODIUM (NA) 143 MEQ/L (136-145)
[2017-03-28 08:22] LABS: ALKALINE PHOSPHATASE 200 U/L (45-117); TOTAL BILIRUBIN ADULT 1.7 MG/DL (0.2-1.0)
[2017-03-28] MEDS: TOPIRAMATE 100 MG TAB PO SCH (09:51)
[2017-03-28] MEDS: PANTOPRAZOLE SOD 40 MG DELAYED RELEASE TAB PO SCH (09:52)
[2017-03-28] MEDS: BISACODYL EC 5 MG TABEC PO SCH (09:52)
[2017-03-28] MEDS: MULTIVITAMINS/MINERALS THERAPEUTIC TAB PO SCH (09:52)
[2017-03-28] MEDS: predniSONE 20 MG TAB PO SCH ×2 (09:52→21:32)
[2017-03-28] MEDS: DULoxetine HCl DR 60 MG CAP PO SCH (09:52)
[2017-03-28] MEDS: LORATADINE 10 MG TAB PO SCH (09:52)
[2017-03-28] MEDS: FLUTICASONE PROPIONATE 50 MCG/ACT 16 GM NASAL SPRAY EACH NARE SCH ×2 (09:53→21:33)
[2017-03-28] MEDS: DOCUSATE SODIUM 100 MG CAP PO SCH ×2 (09:53→21:31)
[2017-03-28] MEDS: FLUTICASONE 100 MCG/VILANTEROL 25 MCG INHALER INH SCH (09:53)
[2017-03-28] MEDS: SODIUM CHLORIDE 0.9% FLUSH 10 ML FLUSH IV FLUSH SCH ×2 (10:06→21:32)
[2017-03-28] MEDS: HYDROCORTISONE ACETATE 25 MG SUPP RECTAL SCH ×2 (10:07→21:00)
--- NOTE | 2017-03-28 10:55 | GIPROC ---
[facility] [address] [facility]. [facility], [address] EGD PROCEDURE REPORT EXAM DATE: 03/28/2017 PATIENT NAME: Dionne Almodovar MR #: [id number] BIRTHDATE: 1965 ATTENDING: Sahra Bower MD ORDER #: [id number] CONTINUOUS MINING MACHINE LODE MINER: Briana Dent and Nancy Pickett STATUS: inpatient INDICATIONS: The patient is a 52 yr old female here for an EGD due to dysphagia PROCEDURE PERFORMED: EGD, diagnostic MEDICATIONS: None and Per Anesthesia. TOPICAL ANESTHETIC: none CONSENT: The patient understands the risks and benefits of the procedure and understands that these risks include, but are not limited to: sedation, allergic reaction, infection, perforation and/or bleeding. Alternative means of evaluation and treatment include, among others: physical exam, x-rays, and/or surgical intervention. The patient elects to proceed with this endoscopic procedure. medical equipment was checked for proper function. Hand hygiene and appropriate measures for infection prevention was taken. After the risks, benefits and alternatives of the procedure were thoroughly explained, Informed consent was verified, confirmed and timeout was successfully executed by the treatment team. The patient was anesthetized with topical anesthesia and the Pentax EG-[id number] endoscope was introduced through the mouth and advanced to the second portion of the duodenum. Retroflexion was performed and was normal The gastroscope was then slowly withdrawn and removed. The endoscopy was otherwise normal. ADVERSE EVENTS: There were no complications. IMPRESSIONS: 1. Normal endoscopy otherwise 2. Retroflexion was performed and was normal RECOMMENDATIONS: No treatment PATIENT CONDITION: stable DISPOSITION: Observation REPEAT EXAM: NONE Sahra Bower MD eSigned: Sahra Bower MD 03/28/2017 10:55 AM cc: PATIENT NAME: Dionne Almodovar MR#: [id number]
[2017-03-28] MEDS ORDERED: PROPOFOL 200 MG/20 ML AMP IV ONE (10:57)
[2017-03-28] MEDS ORDERED: DO NOT ADM ANY ANTICOAGULANT DRUGS PRN (11:00)
--- NOTE | 2017-03-28 16:41 | HHI.PR ---
Subjective Remarks Pt had an EGD today which was negative. Still having hoarseness of voice NO other complaints. Objective Vitals Vital Signs Date Time Temp Pulse Resp B/P Pulse Ox O2 Delivery O2 Flow Rate FiO2 03/28/17 12:00 97.5 53 18 154/79 96 03/28/17 11:23 55 18 149/79 97 03/28/17 11:08 53 18 140/79 98 03/28/17 10:52 97.6 58 18 140/73 97 03/28/17 08:25 Room Air 03/28/17 08:00 98.0 50 18 150/79 93 03/28/17 04:45 98.0 51 18 159/89 95 03/28/17 00:15 97.9 51 18 134/75 96 03/27/17 20:15 98.0 75 18 130/74 95 03/27/17 19:45 Room Air 03/27/17 19:45 78 03/27/17 03/27/17 03/28/17 15:00 23:00 07:00 Intake Total 480 ml 0 ml Output Total 950 ml 1000 ml Balance -470 ml -1000 ml Intake Oral 480 ml 0 ml Output Urine Total 950 ml 1000 ml # Bowel Movements 1 1 Result Diagram: 03/26/17 0723 03/28/17 0710 Other Results Laboratory Tests Test 03/27/17 03/28/17 06:46 07:10 Sodium Level 142 MEQ/L 143 MEQ/L Potassium Level 3.8 MEQ/L 3.5 MEQ/L Chloride Level 108 MEQ/L 108 MEQ/L Carbon Dioxide Level 26.0 MEQ/L 26.1 MEQ/L Anion Gap 8 MEQ/L 9 MEQ/L Blood Urea Nitrogen 15 MG/DL 16 MG/DL Creatinine 0.77 MG/DL 0.63 MG/DL Estimat Glomerular Filtration 79 ML/MIN 99 ML/MIN Rate Random Glucose 162 MG/DL 110 MG/DL Calcium Level 7.4 MG/DL 7.8 MG/DL Protein Corrected Calcium 8.3 MG/DL Total Bilirubin 2.0 MG/DL 1.7 MG/DL Aspartate Amino Transf 163 U/L 113 U/L (AST/SGOT) Alanine Aminotransferase 744 U/L 586 U/L (ALT/SGPT) Alkaline Phosphatase 231 U/L 200 U/L Total Protein 5.4 GM/DL 5.4 GM/DL Albumin 2.2 GM/DL 2.3 GM/DL Imaging Last Impressions Cholangiopancreatography MRI 03/22/17 0000 Signed Impressions: Service Date/Time: Wednesday, March 22, 2017 13:01 - CONCLUSION: Nonspecific diffuse gallbladder wall thickening and pericholecystic fluid. In the setting of ascites and pleural effusions, this finding may be related to hypoalbuminemia. No gallstones identified. Cl Trujillo MD Gall Bladder Ultrasound 03/21/17 0000 Signed Impressions: Service Date/Time: March 22:48 - CONCLUSION: 1. Marked thickening of the gallbladder wall which may reflect cholecystitis. Radionuclide imaging is recommended for further evaluation if clinically indicated. Donald Weathers MD Objective Remarks General: NAD, AAOx3 Chest: CTA Cardiac: Regular Abd: +BS, non-distended, nontender, no rebound or guarding Ext: No edema A/P Problem List: (1) Elevated LFTs Status: Acute Plan: -Pt is a 52 y/o WF with Lupus (pt is on Cellcept and Mobic), COPD, hypothyroidism, migraine headaches and hx of iron deficiency. - Pt presented with complaints of generalized weakness, nausea, subjective fever and intermittent chills, myalgias, generalized abdominal pain, constipation, bloating and fatigue which began around 3 weeks ago with left sided abdominal discomfort, increased fatigue. - Output CT Abd/pelvis W/O contrast on 03/12/17 which was negative for any renal or ureteral calculus and no evidence of obstructive uropathy. - She reports a change in her bowel habits at that time with increased constipation so she tried using Fleet enemas and Dulcolax with some bowel movements but not anything significant and no real improvement in the abd /flank pain. - Her labs on 03/21 noted Tbili 8.3, AST 1793, ALT 1909, AlkPhos 375, CRP 1.20, ESR was 7. - Autoimmune panel is pending (TIESHA, SS-A Ab/SS-B Ab, Marrero Ab, Scl-70 Ab, DS DNA Ab, RF). - Pt had a GB US performed in the ED which noted marked thickening of the gallbladder wall and borderline common duct dilation and a trace amount of free fluid surrounding the liver. - Repeat LFTs on admission were Tbili 7.5, DBili 6.2, AST 1666, ALT 1589, AlkPhos 285. - The cause for her elevated LFTs is unclear at this time, possibly secondary to autoimmune process vs. medications vs. other. - Tylenol level is negative. - Monoscreen is negative. - Review of outpt labs from 12/2016 noted completely normal LFTs. She denies any hx of viral hepatitis. She had been using Flexeril intermittently. Pt was recently started on Ranitidine and Rizatriptan as needed for headaches. - CMV IgM Ab is elevated at 53.50 but CMV IgG Ab negative. - EBV panel is consistent with past infection. Viral hepatitis panel is negative. - ASMA (negative), AMA (pending), TIESHA (negative), LKM-1 Ab (pending), Ceruloplasmin (pending) ,Ferritin (elevated at 2210), and [id number] ( pending) - MRCP shows pericholecystic fluid..nonspecific...gen surg not convinced of cholecystitis. - Mycophenolic acid level pending - Of note, the pt reports that she travels to [facility] every year and recently returned from a mission trip in January 2017. Rare possibility for her symptoms and elevated LFTs could be a parasitic infection. We will check stools for O&P. - She had also been taking antibiotics recently for an oral surgery she had and for a finger infection and was taking antibiotics up until 01/2017. - Pt was c/o a lot of myalgia/arthralgia and on 03/23 her LFTs trended up so the pt was started on Solu-Medrol 60mg Iv Q12H on 03/23/17 to cover for ?AI process/ possible lupus flare and pts LFTs have been trending down and pt overall has been improving clinically. - Await Autoimmune w/up labs - GI following - Monitor LFTs daily. If LKM-1 Ab is negative, the pt may need liver biopsy, this may be done as an outpt. - Steroids converted to Prednisone 60mg po BID on 03/27/17 - Pain control PRN - Pt had complained of constipation. KUB (03/25) noted a normal bowel gas pattern. Pt was given Relistor on 03/25. She was also given GoLytely and mineral oil enema on 03/25 with resulting BMs on 03/25. Pt still some LUQ pain which improved with Simethicone 125mg Q8H - Pt had complained of some hoarseness of voice and dysphagia on 03/27. She underwent evaluation with EGD on 03/28/17 which was normal. - Pt had complained of some cough on 03/27 as well and CXR noted bilateral pleural effusions and atelectatic changes at the bases. US chest with minimal fluid, not enough for thoracentesis. - Repeat labs in AM and if continue to improve we will discharge home on slow steroid taper with GI followup. - PPI - DVT prophylaxis with SCDs (2) Generalized weakness Status: Acute Plan: - See above. (3) Constipation Status: Acute Plan: - May be related to pain medications and immobility. - See above. - Cont. Colace BID and Dulcolax daily (4) Lupus (systemic lupus erythematosus) Status: Chronic Plan: - Resume Cellcept at home dose of 1000mg in AM and 500mg in evening. - Hold on resuming Mobic. (5) Hypothyroidism Status: Chronic Plan: - Cont. home meds - TSH was 3.200 on 03/22/17 - Previous labs on 03/13 with TSH 0.194 and Free T4 1.33 and Synthroid was changed to 100mcg 6 days per week Assessment and Plan Patient examined. Assessment and plan formulated with Suzie Juan PA-C. I agree with the above. Suzie Juan Mar 28, 2017 16:41 Jack Pablo DO Mar 30, 2017 22:27
[2017-03-28] MEDS: MONTELUKAST SODIUM 10 MG TAB PO SCH (21:32)
[2017-03-29] VITALS (9 sets, daily range): BP systolic 139–159; BP diastolic 74–99; PULSE 56–72; RESP 16–20; TEMP 98–98.8; O2SAT 95–97
[2017-03-29] MEDS: LIOTHYRONINE SODIUM 5 MCG TAB PO SCH (05:24)
[2017-03-29] MEDS: ACETAMINOPHEN/HYDROcodone 325 MG/5 MG TAB PO PRN ×4 (05:24→21:34)
[2017-03-29] MEDS: MYCOPHENOLATE MOFETIL 500 MG TAB PO SCH ×2 (05:25→17:36)
[2017-03-29] MEDS: LEVOTHYROXINE SODIUM 100 MCG TAB PO SCH (05:25)
[2017-03-29] MEDS: SIMETHICONE 125 MG CHEWABLE TAB PO SCH ×3 (05:25→21:31)
[2017-03-29] MEDS: HYDROCORTISONE ACETATE 25 MG SUPP RECTAL SCH ×2 (09:00→21:31)
[2017-03-29] MEDS: predniSONE 20 MG TAB PO SCH ×2 (09:03→21:31)
[2017-03-29] MEDS: BISACODYL EC 5 MG TABEC PO SCH (09:03)
[2017-03-29] MEDS: DOCUSATE SODIUM 100 MG CAP PO SCH ×2 (09:04→21:31)
[2017-03-29] MEDS: TOPIRAMATE 100 MG TAB PO SCH (09:04)
[2017-03-29] MEDS: DULoxetine HCl DR 60 MG CAP PO SCH (09:04)
[2017-03-29] MEDS: LORATADINE 10 MG TAB PO SCH (09:04)
[2017-03-29] MEDS: MULTIVITAMINS/MINERALS THERAPEUTIC TAB PO SCH (09:04)
[2017-03-29] MEDS: PANTOPRAZOLE SOD 40 MG DELAYED RELEASE TAB PO SCH (09:04)
[2017-03-29] MEDS: FLUTICASONE 100 MCG/VILANTEROL 25 MCG INHALER INH SCH (09:07)
[2017-03-29] MEDS: FLUTICASONE PROPIONATE 50 MCG/ACT 16 GM NASAL SPRAY EACH NARE SCH ×2 (09:08→21:31)
[2017-03-29] MEDS: SODIUM CHLORIDE 0.9% FLUSH 10 ML FLUSH IV FLUSH SCH ×2 (09:09→21:31)
[2017-03-29 10:11] LABS: ALKALINE PHOSPHATASE 205 U/L (45-117); ALT (GPT) 491 U/L (10-53); ANION GAP 9 MEQ/L (5-15); AST (GOT) 69 U/L (15-37); BICARBONATE 23.9 MEQ/L (21.0-32.0); BLOOD UREA NITROGEN 17 MG/DL (7-18); CHLORIDE 106 MEQ/L (98-107); GLOMERULAR FILTRATION RATE 88 ML/MIN (>89); POTASSIUM 3.8 MEQ/L (3.5-5.1); SODIUM (NA) 139 MEQ/L (136-145); TOTAL BILIRUBIN ADULT 1.6 MG/DL (0.2-1.0)
[2017-03-29] MEDS ORDERED: LORazepam 2 MG/ML VIAL IV PUSH ONE (10:15)
--- NOTE | 2017-03-29 11:15 | HHI.PR ---
Subjective Remarks No new complaints Pt tolerating diet without difficulty Objective Vitals Vital Signs Date Time Temp Pulse Resp B/P Pulse Ox O2 Delivery O2 Flow Rate FiO2 03/29/17 08:00 98.1 62 20 153/82 97 03/29/17 04:55 98.1 56 18 147/92 95 03/28/17 23:38 97.7 59 18 140/68 95 03/28/17 20:00 97.9 63 18 142/79 95 03/28/17 19:45 Room Air 03/28/17 19:45 65 03/28/17 16:00 97.7 58 18 131/70 93 03/28/17 12:00 97.5 53 18 154/79 96 03/28/17 11:23 55 18 149/79 97 03/28/17 03/28/17 03/29/17 15:00 23:00 07:00 Intake Total 292 ml 960 ml 240 ml Output Total 2900 ml 600 ml 600 ml Balance -2608 ml 360 ml -360 ml Intake Oral 240 ml 960 ml 240 ml IV Total 52 ml Output Urine Total 2900 ml 600 ml 600 ml # Bowel Movements 1 2 0 Result Diagram: 03/26/17 0723 03/29/17 0754 Other Results Laboratory Tests Test 03/28/17 03/29/17 07:10 07:54 Sodium Level 143 MEQ/L 139 MEQ/L Potassium Level 3.5 MEQ/L 3.8 MEQ/L Chloride Level 108 MEQ/L 106 MEQ/L Carbon Dioxide Level 26.1 MEQ/L 23.9 MEQ/L Anion Gap 9 MEQ/L 9 MEQ/L Blood Urea Nitrogen 16 MG/DL 17 MG/DL Creatinine 0.63 MG/DL 0.70 MG/DL Estimat Glomerular Filtration 99 ML/MIN 88 ML/MIN Rate Random Glucose 110 MG/DL 117 MG/DL Calcium Level 7.8 MG/DL 7.7 MG/DL Total Bilirubin 1.7 MG/DL 1.6 MG/DL Aspartate Amino Transf 113 U/L 69 U/L (AST/SGOT) Alanine Aminotransferase 586 U/L 491 U/L (ALT/SGPT) Alkaline Phosphatase 200 U/L 205 U/L Total Protein 5.4 GM/DL 5.9 GM/DL Albumin 2.3 GM/DL 2.5 GM/DL Imaging Last Impressions Cholangiopancreatography MRI 03/22/17 0000 Signed Impressions: Service Date/Time: Wednesday, March 22, 2017 13:01 - CONCLUSION: Nonspecific diffuse gallbladder wall thickening and pericholecystic fluid. In the setting of ascites and pleural effusions, this finding may be related to hypoalbuminemia. No gallstones identified. Cl Trujillo MD Gall Bladder Ultrasound 03/21/17 0000 Signed Impressions: Service Date/Time: March 22:48 - CONCLUSION: 1. Marked thickening of the gallbladder wall which may reflect cholecystitis. Radionuclide imaging is recommended for further evaluation if clinically indicated. Donald Weathers MD Objective Remarks General: NAD, AAOx3 Chest: CTA Cardiac: Regular Abd: +BS, non-distended, nontender, no rebound or guarding Ext: No edema A/P Problem List: (1) Elevated LFTs Status: Acute Plan: -Pt is a 52 y/o WF with Lupus (pt is on Cellcept and Mobic), COPD, hypothyroidism, migraine headaches and hx of iron deficiency. - Pt presented with complaints of generalized weakness, nausea, subjective fever and intermittent chills, myalgias, generalized abdominal pain, constipation, bloating and fatigue which began around 3 weeks ago with left sided abdominal discomfort, increased fatigue. - Output CT Abd/pelvis W/O contrast on 03/12/17 which was negative for any renal or ureteral calculus and no evidence of obstructive uropathy. - She reports a change in her bowel habits at that time with increased constipation so she tried using Fleet enemas and Dulcolax with some bowel movements but not anything significant and no real improvement in the abd /flank pain. - Her labs on 03/21 noted Tbili 8.3, AST 1793, ALT 1909, AlkPhos 375, CRP 1.20, ESR was 7. - Autoimmune panel is pending (TIESHA, SS-A Ab/SS-B Ab, Marrero Ab, Scl-70 Ab, DS DNA Ab, RF). - Pt had a GB US performed in the ED which noted marked thickening of the gallbladder wall and borderline common duct dilation and a trace amount of free fluid surrounding the liver. - Repeat LFTs on admission were Tbili 7.5, DBili 6.2, AST 1666, ALT 1589, AlkPhos 285. - The cause for her elevated LFTs is unclear at this time, possibly secondary to autoimmune process vs. medications vs. other. - Tylenol level is negative. - Monoscreen is negative. - Review of outpt labs from 12/2016 noted completely normal LFTs. She denies any hx of viral hepatitis. She had been using Flexeril intermittently. Pt was recently started on Ranitidine and Rizatriptan as needed for headaches. - CMV IgM Ab is elevated at 53.50 but CMV IgG Ab negative. - EBV panel is consistent with past infection. Viral hepatitis panel is negative. - ASMA (negative), AMA (negative), TIESHA (negative), Ceruloplasmin (negative) , Ferritin (elevated at 2210), and [id number] (negative) - MRCP shows pericholecystic fluid..nonspecific...gen surg not convinced of cholecystitis. - Mycophenolic acid level pending - Of note, the pt reports that she travels to [facility] every year and recently returned from a mission trip in January 2017. Rare possibility for her symptoms and elevated LFTs could be a parasitic infection. We will check stools for O&P. - She had also been taking antibiotics recently for an oral surgery she had and for a finger infection and was taking antibiotics up until 01/2017. - Pt was c/o a lot of myalgia/arthralgia and on 03/23 her LFTs trended up so the pt was started on Solu-Medrol 60mg Iv Q12H on 03/23/17 to cover for ?AI process/ possible lupus flare and pts LFTs have been trending down and pt overall has been improving clinically. - Await Autoimmune w/up labs - GI following - Monitor LFTs daily. - Steroids converted to Prednisone 60mg po BID on 03/27/17 - Pain control PRN - Pt had complained of constipation. KUB (03/25) noted a normal bowel gas pattern. Pt was given Relistor on 03/25. She was also given GoLytely and mineral oil enema on 03/25 with resulting BMs on 03/25. Pt still some LUQ pain which improved with Simethicone 125mg Q8H - Pt had complained of some hoarseness of voice and dysphagia on 03/27. She underwent evaluation with EGD on 03/28/17 which was normal. - Pt had complained of some cough on 03/27 as well and CXR noted bilateral pleural effusions and atelectatic changes at the bases. US chest with minimal fluid, not enough for thoracentesis. - LKM-1 Ab is negative, case was discussed with Dr. Bower (03/29) and inpatient CT guided liver biopsy requested for today. This was discussed with the pt and all questions were answered - PPI - DVT prophylaxis with SCDs (2) Generalized weakness Status: Acute Plan: - See above. (3) Constipation Status: Acute Plan: - May be related to pain medications and immobility. - See above. - Cont. Colace BID and Dulcolax daily (4) Lupus (systemic lupus erythematosus) Status: Chronic Plan: - Resume Cellcept at home dose of 1000mg in AM and 500mg in evening. - Hold on resuming Mobic. (5) Hypothyroidism Status: Chronic Plan: - Cont. home meds - TSH was 3.200 on 03/22/17 - Previous labs on 03/13 with TSH 0.194 and Free T4 1.33 and Synthroid was changed to 100mcg 6 days per week Assessment and Plan Patient examined. Assessment and plan formulated with Suzie Juan PA-C. I agree with the above. Suzie Juan Mar 29, 2017 11:15 Jack Pablo DO Mar 30, 2017 22:27
[2017-03-29 12:28] LABS: AUTOMATED NEUTROPHIL # 9.4 TH/MM3 (1.8-7.7); BASOPHIL # 0.1 TH/MM3 (0-0.2); BASOPHIL % 0.5 % (0.0-2.0); HEMATOCRIT 39.9 % (35.0-46.0); LYMPH % 6.7 % (9.0-44.0); LYMPHOCYTE # 0.7 TH/MM3 (1.0-4.8); MEAN CELL VOLUME 93.8 FL (80.0-100.0); MEAN CORPUSCULAR HEMOGLOBIN 29.9 PG (27.0-34.0); MEAN CORPUSCULAR HGB CONC 31.9 % (32.0-36.0); MONO % 8.4 % (0.0-8.0); NEUT % 84.4 % (16.0-70.0); PLATELET COUNT 210 TH/MM3 (150-450); RED BLOOD COUNT 4.25 MIL/MM3 (4.00-5.30); RED CELL DISTRIBUTION WIDTH 17.2 % (11.6-17.2); WHITE BLOOD COUNT 11.1 TH/MM3 (4.0-11.0)
[2017-03-29 12:31] LABS: HEMO FLAGS AUTO DIFF; INTERNATIONAL NORMALIZED RATIO 1.1 RATIO
[2017-03-29 13:06] LABS: PLATELET ESTIMATE SMEAR NORMAL (NORMAL); PLATELET MORPHOLOGY NORMAL (NORMAL)
[2017-03-29 13:07] LABS: OVALOCYTES 1+ (NORMAL); TOXIC GRANULATION 1+ (NORMAL)
[2017-03-29 13:08] LABS: TEARDROP RBCS 1+ (NORMAL)
[2017-03-29 13:47] LABS: SCAN/DIFF AUTO DIFF CONFIRMED
--- NOTE | 2017-03-29 14:19 | HHI.GIFU ---
Subjective Remarks Pt resting in bed. Still with some epigastric tenderness. BM yesterday. ( Jenna Webb) Objective Vitals I&O Vital Signs Date Time Temp Pulse Resp B/P Pulse Ox O2 Delivery O2 Flow Rate FiO2 03/29/17 12:00 98.1 60 18 144/74 95 03/29/17 08:00 98.1 62 20 153/82 97 03/29/17 04:55 98.1 56 18 147/92 95 03/28/17 23:38 97.7 59 18 140/68 95 03/28/17 20:00 97.9 63 18 142/79 95 03/28/17 19:45 Room Air 03/28/17 19:45 65 03/28/17 16:00 97.7 58 18 131/70 93 I/O 03/28/17 03/28/17 03/28/17 03/29/17 03/29/17 03/29/17 07:00 15:00 23:00 07:00 15:00 23:00 Intake Total 0 ml 292 ml 960 ml 240 ml Output Total 1000 ml 2900 ml 600 ml 600 ml Balance -1000 ml -2608 ml 360 ml -360 ml Intake Oral 0 ml 240 ml 960 ml 240 ml IV Total 52 ml Output Urine Total 1000 ml 2900 ml 600 ml 600 ml # Bowel Movements 1 1 2 0 Laboratory Laboratory Tests Test 03/29/17 03/29/17 07:54 11:59 Sodium Level 139 Potassium Level 3.8 Chloride Level 106 Carbon Dioxide Level 23.9 Anion Gap 9 Blood Urea Nitrogen 17 Creatinine 0.70 Estimat Glomerular Filtration 88 Rate Random Glucose 117 Calcium Level 7.7 Total Bilirubin 1.6 Aspartate Amino Transf 69 (AST/SGOT) Alanine Aminotransferase 491 (ALT/SGPT) Alkaline Phosphatase 205 Total Protein 5.9 Albumin 2.5 White Blood Count 11.1 Red Blood Count 4.25 Hemoglobin 12.7 Hematocrit 39.9 Mean Corpuscular Volume 93.8 Mean Corpuscular Hemoglobin 29.9 Mean Corpuscular Hemoglobin 31.9 Concent Red Cell Distribution Width 17.2 Platelet Count 210 Mean Platelet Volume 10.6 Neutrophils (%) (Auto) 84.4 Lymphocytes (%) (Auto) 6.7 Monocytes (%) (Auto) 8.4 Eosinophils (%) (Auto) 0.0 Basophils (%) (Auto) 0.5 Neutrophils # (Auto) 9.4 Lymphocytes # (Auto) 0.7 Monocytes # (Auto) 0.9 Eosinophils # (Auto) 0.0 Basophils # (Auto) 0.1 CBC Comment AUTO DIFF Differential Comment AUTO DIFF CONFIRMED Toxic Granulation 1+ Platelet Estimate NORMAL Platelet Morphology Comment NORMAL Tear Drop Cells 1+ Ovalocytes 1+ Prothrombin Time 12.0 Prothromb Time International 1.1 Ratio Imaging Last Impressions Chest X-Ray 03/27/17 0000 Signed Impressions: Service Date/Time: Monday, March 27, 2017 16:15 - CONCLUSION: 1. Bilateral pleural effusions. There are atelectatic changes within the lung bases as well. Michele Farrell MD Chest Ultrasound 03/27/17 0000 Signed Impressions: Service Date/Time: Monday, March 27, 2017 23:12 - CONCLUSION: Normal examination. Demetrius Ruth MD Abdomen X-Ray 03/25/17 0000 Signed Impressions: Service Date/Time: Saturday, March 25, 2017 16:04 - CONCLUSION: Normal examination. Vasiliy Saini Jr., MD Cholangiopancreatography MRI 03/22/17 0000 Signed Impressions: Service Date/Time: Wednesday, March 22, 2017 13:01 - CONCLUSION: Nonspecific diffuse gallbladder wall thickening and pericholecystic fluid. In the setting of ascites and pleural effusions, this finding may be related to hypoalbuminemia. No gallstones identified. Cl Trujillo MD Gall Bladder Ultrasound 03/21/17 0000 Signed Impressions: Service Date/Time: March 22:48 - CONCLUSION: 1. Marked thickening of the gallbladder wall which may reflect cholecystitis. Radionuclide imaging is recommended for further evaluation if clinically indicated. Donald Weathers MD Physical Exam HEENT: normocephalic; atraumatic; no jaundice. CHEST: CTA CARDIAC: RRR ABDOMEN: Soft, nondistended, epigastric tenderness; no hepatosplenomegaly; bowel sounds are present in all four quadrants. EXTREMITIES: No clubbing, cyanosis, or edema. SKIN: normal, no rash [employer] ADVIS[employer] SERVICE LIBRARIAN: AOx3 (Jenna Webb S SPINNING LATHE OPERATOR) Assessment and Plan Plan ASSESSMENT - Elevated LFTs, jaundice - improving, steroids.. hep panel neg, TIESHA neg, ASMA neg, MA neg, KLM neg, EBV AG Igm Ab negative, EBV nuclear AG (+) and EBV Ag IgG Ab (+), CMV IgM 53.5, CMV IgG neg. Fe 2210, iron saturation 44.6. Pt w/ hx Mylene, lupus. US suggestive cholecystitis. MRCP Nonspecific diffuse gallbladder wall thickening and pericholecystic fluid. In the setting of ascites and pleural effusions, this finding may be related to hypoalbuminemia. No gallstones identified. Liver bx pending. Gs on the case, who don't think patient symptoms are secondary to cholecystitis, therefore, no surgical intervention - abdominal pain - subsided - Constipation - not improved. lactulose, Colace. PLAN - JIMMY - await liver bx - monitor labs - ok to switch to PO steroids for d/c - further recommendations to follow results above This pt seen by myself and Dr Bower and this note is written on his behalf ( Jenna Webb) Physician Comments Agree with the plan as above, Prednisolone orally and await liver biopsy results. (Sahra Bower MD) Jenna Webb Mar 29, 2017 14:19 Sahra Bower MD Mar 29, 2017 17:11
--- NOTE | 2017-03-29 16:15 | PD.RAD ---
Post CT Procedure Prog Note Pre Procedure Diagnosis: (1) Elevated LFTs Post Procedure Diagnosis: (1) Elevated LFTs Procedure Date: Mar 29, 2017 Supervising Radiologist: Prakash Reed Proceduralist/Assist: RT Alondra(R)(CT) Anesthesia: Local, Analgesia, Conscious Sedation Plan of Activity Patient to Unit: ROPU Patient Condition: Good See PACS Report for procedural detail/treatment Biopsy Imaging Guidance: CT Side: Right Biopsy Procedure: Liver Specimen: Core Biopsy (18 gauage) Prakash Reed MD Mar 29, 2017 16:15
--- NOTE | 2017-03-29 16:44 | RADRPT ---
EXAM DATE/TIME: 03/29/2017 15:48 [facility] COMPARISON: No previous studies available for comparison. INDICATIONS : Elevated liver functions. SEDATION TIME: 15 minutes BIOPSY SITE: Right upper abdomen. MEDICATION(S): 1.) 2 mg midazolam (Versed) IV 2.) 100 mcg fentanyl (Sublimaze) IV DEVICE(S): 1.) 18 gauge, 9 cm Temno core biopsy needle MEDICAL HISTORY : Hernia, hiatal. Asthma. SURGICAL HISTORY : None. ENCOUNTER: Initial ACUITY: 1 day PAIN SCORE: 3/10 LOCATION: Right upper quadrant A total of one core specimen(s) were obtained and sent to the laboratory for pathologic evaluation. PROCEDURE: 1. CT guided liver biopsy. 2. Conscious sedation with continuous EKG and oximetry monitoring. 3. EKG and oximetry remained stable throughout the procedure. Prior to the procedure informed consent was obtained. Any appropriate prior imaging studies were rev iewed. Using automated exposure control and adjustment of the mA and/or kV according to patient size, radiat ion dose was kept as low as reasonably achievable to obtain optimal diagnostic quality images. The site was prepped in a sterile fashion. Full sterile technique was used, including cap, mask, laxmi rile gloves and gown and a large sterile sheet. Hand hygiene and 2% chlorhexidine and/or betadine/al cohol prep was utilized per protocol for cutaneous antisepsis. The skin and subcutaneous tissues wer e infiltrated with local anesthetic solution. With CT guidance the previously identified target was localized. Biopsy was performed using the presc ribed needle as above. Adequate hemostasis was obtained with compression at the puncture site. Follow-up CT scan reveals no hemorrhage. The patient tolerated the procedure well and there were no complications. The patient was returned to the Radiology Outpatient Unit in stable condition. CONCLUSION: Uncomplicated CT guided biopsy. Prakash Reed MD on March 29, 2017 at 16:40 Board Certified Radiologist. This report was verified electronically.
[2017-03-29] MEDS: ACYCLOVIR 200 MG CAP PO SCH (17:36)
[2017-03-29] MEDS: MONTELUKAST SODIUM 10 MG TAB PO SCH (21:31)
[2017-03-30] MEDS: ACETAMINOPHEN/HYDROcodone 325 MG/5 MG TAB PO PRN ×5 (03:06→20:51)
[2017-03-30 04:00] VITALS: BP 148/71; PULSE 61; RESP 16; TEMP 97.7; O2SAT 96
[2017-03-30] MEDS: LIOTHYRONINE SODIUM 5 MCG TAB PO SCH (05:40)
[2017-03-30] MEDS: SIMETHICONE 125 MG CHEWABLE TAB PO SCH ×3 (05:40→20:49)
[2017-03-30] MEDS: LEVOTHYROXINE SODIUM 100 MCG TAB PO SCH (05:40)
[2017-03-30] MEDS: MYCOPHENOLATE MOFETIL 500 MG TAB PO SCH ×2 (05:41→16:46)
[2017-03-30 08:00] VITALS: BP 117/57; PULSE 60; PULSE 92; RESP 18; TEMP 97.5; O2SAT 97
[2017-03-30] MEDS: ACYCLOVIR 200 MG CAP PO SCH (08:13)
[2017-03-30] MEDS: predniSONE 20 MG TAB PO SCH ×2 (08:13→20:51)
[2017-03-30] MEDS: TOPIRAMATE 100 MG TAB PO SCH (08:14)
[2017-03-30] MEDS: PANTOPRAZOLE SOD 40 MG DELAYED RELEASE TAB PO SCH (08:14)
[2017-03-30] MEDS: MULTIVITAMINS/MINERALS THERAPEUTIC TAB PO SCH (08:14)
[2017-03-30] MEDS: SODIUM CHLORIDE 0.9% FLUSH 10 ML FLUSH IV FLUSH SCH ×2 (08:15→20:53)
[2017-03-30] MEDS: FLUTICASONE PROPIONATE 50 MCG/ACT 16 GM NASAL SPRAY EACH NARE SCH ×2 (08:15→20:53)
[2017-03-30] MEDS: LORATADINE 10 MG TAB PO SCH (08:15)
[2017-03-30] MEDS: DULoxetine HCl DR 60 MG CAP PO SCH (08:16)
[2017-03-30] MEDS: DOCUSATE SODIUM 100 MG CAP PO SCH ×2 (08:16→21:01)
[2017-03-30] MEDS: BISACODYL EC 5 MG TABEC PO SCH (08:16)
[2017-03-30] MEDS: FLUTICASONE 100 MCG/VILANTEROL 25 MCG INHALER INH SCH (08:19)
[2017-03-30] MEDS: HYDROCORTISONE ACETATE 25 MG SUPP RECTAL SCH ×2 (08:25→21:00)
[2017-03-30 12:00] VITALS: BP 155/81; PULSE 69; RESP 18; TEMP 98.5; O2SAT 92
--- NOTE | 2017-03-30 15:12 | HHI.GIFU ---
Subjective Remarks Patient is resting in bed, not voicing any complaints, awaiting liver bx (Sina Thrasher VINAY) Objective Vitals I&O Vital Signs Date Time Temp Pulse Resp B/P Pulse Ox O2 Delivery O2 Flow Rate FiO2 03/30/17 12:00 98.5 69 18 155/81 92 03/30/17 08:00 97.5 92 18 117/57 97 03/30/17 08:00 Room Air 03/30/17 04:00 97.7 61 16 148/71 96 03/30/17 04:00 Room Air 03/30/17 00:00 Room Air 03/29/17 23:00 98.0 63 18 143/81 95 03/29/17 20:21 98.1 72 18 144/74 96 03/29/17 20:00 Room Air 03/29/17 20:00 Room Air 03/29/17 17:00 65 16 151/85 96 03/29/17 16:45 63 16 139/86 96 03/29/17 16:30 62 16 156/88 96 03/29/17 16:15 98.8 62 16 159/99 96 03/29/17 16:00 Room Air I/O 03/29/17 03/29/17 03/29/17 03/30/17 03/30/17 03/30/17 07:00 15:00 23:00 07:00 15:00 23:00 Intake Total 240 ml 242 ml 360 ml 800 ml Output Total 600 ml 1850 ml 800 ml 1000 ml Balance -360 ml -1608 ml -440 ml -200 ml Intake Oral 240 ml 240 ml 360 ml 800 ml IV Total 2 ml Output Urine Total 600 ml 1850 ml 800 ml 1000 ml # Bowel Movements 0 0 0 0 Laboratory Laboratory Tests Test 03/29/17 03/29/17 07:54 11:59 Sodium Level 139 MEQ/L Potassium Level 3.8 MEQ/L Chloride Level 106 MEQ/L Carbon Dioxide Level 23.9 MEQ/L Anion Gap 9 MEQ/L Blood Urea Nitrogen 17 MG/DL Creatinine 0.70 MG/DL Estimat Glomerular Filtration 88 ML/MIN Rate Random Glucose 117 MG/DL Calcium Level 7.7 MG/DL Total Bilirubin 1.6 MG/DL Aspartate Amino Transf 69 U/L (AST/SGOT) Alanine Aminotransferase 491 U/L (ALT/SGPT) Alkaline Phosphatase 205 U/L Total Protein 5.9 GM/DL Albumin 2.5 GM/DL White Blood Count 11.1 TH/MM3 Red Blood Count 4.25 MIL/MM3 Hemoglobin 12.7 GM/DL Hematocrit 39.9 % Mean Corpuscular Volume 93.8 FL Mean Corpuscular Hemoglobin 29.9 PG Mean Corpuscular Hemoglobin 31.9 % Concent Red Cell Distribution Width 17.2 % Platelet Count 210 TH/MM3 Mean Platelet Volume 10.6 FL Neutrophils (%) (Auto) 84.4 % Lymphocytes (%) (Auto) 6.7 % Monocytes (%) (Auto) 8.4 % Eosinophils (%) (Auto) 0.0 % Basophils (%) (Auto) 0.5 % Neutrophils # (Auto) 9.4 TH/MM3 Lymphocytes # (Auto) 0.7 TH/MM3 Monocytes # (Auto) 0.9 TH/MM3 Eosinophils # (Auto) 0.0 TH/MM3 Basophils # (Auto) 0.1 TH/MM3 CBC Comment AUTO DIFF Differential Comment AUTO DIFF CONFIRMED Toxic Granulation 1+ Platelet Estimate NORMAL Platelet Morphology Comment NORMAL Tear Drop Cells 1+ Ovalocytes 1+ Prothrombin Time 12.0 SEC Prothromb Time International 1.1 RATIO Ratio Imaging Last Impressions Liver Biopsy CT 03/29/17 0000 Signed Impressions: Service Date/Time: Wednesday, March 29, 2017 15:48 - CONCLUSION: Uncomplicated CT guided biopsy. Prakash Reed MD Chest X-Ray 03/27/17 0000 Signed Impressions: Service Date/Time: Monday, March 27, 2017 16:15 - CONCLUSION: 1. Bilateral pleural effusions. There are atelectatic changes within the lung bases as well. Michele Farrell MD Chest Ultrasound 03/27/17 0000 Signed Impressions: Service Date/Time: Monday, March 27, 2017 23:12 - CONCLUSION: Normal examination. Demetrius Ruth MD Abdomen X-Ray 03/25/17 0000 Signed Impressions: Service Date/Time: Saturday, March 25, 2017 16:04 - CONCLUSION: Normal examination. Vasiliy Saini Jr., MD Cholangiopancreatography MRI 03/22/17 0000 Signed Impressions: Service Date/Time: Wednesday, March 22, 2017 13:01 - CONCLUSION: Nonspecific diffuse gallbladder wall thickening and pericholecystic fluid. In the setting of ascites and pleural effusions, this finding may be related to hypoalbuminemia. No gallstones identified. Cl Trujillo MD Gall Bladder Ultrasound 03/21/17 0000 Signed Impressions: Service Date/Time: March 22:48 - CONCLUSION: 1. Marked thickening of the gallbladder wall which may reflect cholecystitis. Radionuclide imaging is recommended for further evaluation if clinically indicated. Donald Weathers MD Physical Exam HEENT: normocephalic; atraumatic; no jaundice. CHEST: CTA CARDIAC: RRR ABDOMEN: Soft, nondistended, epigastric tenderness; no hepatosplenomegaly; bowel sounds are present in all four quadrants. EXTREMITIES: No clubbing, cyanosis, or edema. SKIN: normal, no rash CANDY MAKER: AOx3 (Sina Thrasher) Assessment and Plan Plan ASSESSMENT - Elevated LFTs, jaundice - Slowly improving. steroids.. hep panel neg, TIESHA neg , ASMA neg, MA neg, KLM neg, EBV AG Igm Ab negative, EBV nuclear AG (+) and EBV Ag IgG Ab (+), CMV IgM 53.5, CMV IgG neg. Fe 2210, iron saturation 44.6. Pt w/ hx Mylene, lupus. US suggestive cholecystitis. MRCP Nonspecific diffuse gallbladder wall thickening and pericholecystic fluid. In the setting of ascites and pleural effusions, this finding may be related to hypoalbuminemia. No gallstones identified. Liver bx pending. Gs on the case, who don't think patient symptoms are secondary to cholecystitis, therefore, no surgical intervention - abdominal pain - subsided - Constipation - lactulose, Colace. PLAN - JIMMY - await liver bx - monitor labs - Cont. steroids - Gi will sign off - okay to Dc home and f/u with GI in 2 weeks - further recommendations to follow results above This pt seen by myself and Dr Barnard and this note is written on his behalf ( Sina Thrasher) Physician Comments Patient seen and examined Agree with above Continue with current supportive care Monitor labs GI will sign off (Abhinav Barnard MD) Sina Thrasher Mar 30, 2017 15:12 Abhinav Barnard MD Mar 30, 2017 18:09
[2017-03-30 16:00] VITALS: BP 146/77; PULSE 72; RESP 18; TEMP 98.3; O2SAT 97
--- NOTE | 2017-03-30 16:59 | HHI.PR ---
Subjective Remarks No c/o abdominal pain. No n/v Pt is tolerating PO intake. Objective Vitals Vital Signs Date Time Temp Pulse Resp B/P Pulse Ox O2 Delivery O2 Flow Rate FiO2 03/30/17 12:00 98.5 69 18 155/81 92 03/30/17 08:00 97.5 92 18 117/57 97 03/30/17 08:00 Room Air 03/30/17 04:00 97.7 61 16 148/71 96 03/30/17 04:00 Room Air 03/30/17 00:00 Room Air 03/29/17 23:00 98.0 63 18 143/81 95 03/29/17 20:21 98.1 72 18 144/74 96 03/29/17 20:00 Room Air 03/29/17 20:00 Room Air 03/29/17 17:00 65 16 151/85 96 03/29/17 03/29/17 03/30/17 15:00 23:00 07:00 Intake Total 242 ml 360 ml 800 ml Output Total 1850 ml 800 ml 1000 ml Balance -1608 ml -440 ml -200 ml Intake Oral 240 ml 360 ml 800 ml IV Total 2 ml Output Urine Total 1850 ml 800 ml 1000 ml # Bowel Movements 0 0 0 Result Diagram: 03/29/17 1159 03/29/17 0754 Imaging Last Impressions Cholangiopancreatography MRI 03/22/17 0000 Signed Impressions: Service Date/Time: Wednesday, March 22, 2017 13:01 - CONCLUSION: Nonspecific diffuse gallbladder wall thickening and pericholecystic fluid. In the setting of ascites and pleural effusions, this finding may be related to hypoalbuminemia. No gallstones identified. Cl Trujillo MD Gall Bladder Ultrasound 03/21/17 0000 Signed Impressions: Service Date/Time: March 22:48 - CONCLUSION: 1. Marked thickening of the gallbladder wall which may reflect cholecystitis. Radionuclide imaging is recommended for further evaluation if clinically indicated. Donald Weathers MD Objective Remarks General: NAD, AAOx3 Chest: CTA Cardiac: Regular Abd: +BS, non-distended, nontender, no rebound or guarding Ext: No edema A/P Problem List: (1) Elevated LFTs Status: Acute Plan: -Pt is a 52 y/o WF with Lupus (pt is on Cellcept and Mobic), COPD, hypothyroidism, migraine headaches and hx of iron deficiency. - Pt presented with complaints of generalized weakness, nausea, subjective fever and intermittent chills, myalgias, generalized abdominal pain, constipation, bloating and fatigue which began around 3 weeks ago with left sided abdominal discomfort, increased fatigue. - Output CT Abd/pelvis W/O contrast on 03/12/17 which was negative for any renal or ureteral calculus and no evidence of obstructive uropathy. - She reports a change in her bowel habits at that time with increased constipation so she tried using Fleet enemas and Dulcolax with some bowel movements but not anything significant and no real improvement in the abd /flank pain. - Her labs on 03/21 noted Tbili 8.3, AST 1793, ALT 1909, AlkPhos 375, CRP 1.20, ESR was 7. - Autoimmune panel is pending (TIESHA, SS-A Ab/SS-B Ab, Marrero Ab, Scl-70 Ab, DS DNA Ab, RF). - Pt had a GB US performed in the ED which noted marked thickening of the gallbladder wall and borderline common duct dilation and a trace amount of free fluid surrounding the liver. - Repeat LFTs on admission were Tbili 7.5, DBili 6.2, AST 1666, ALT 1589, AlkPhos 285. - The cause for her elevated LFTs is unclear at this time, possibly secondary to autoimmune process vs. medications vs. other. - Tylenol level is negative. - Monoscreen is negative. - Review of outpt labs from 12/2016 noted completely normal LFTs. She denies any hx of viral hepatitis. She had been using Flexeril intermittently. Pt was recently started on Ranitidine and Rizatriptan as needed for headaches. - CMV IgM Ab is elevated at 53.50 but CMV IgG Ab negative. - EBV panel is consistent with past infection. Viral hepatitis panel is negative. - ASMA (negative), AMA (negative), TIESHA (negative), Ceruloplasmin (negative) , Ferritin (elevated at 2210), and [id number] (negative) - MRCP shows pericholecystic fluid..nonspecific...gen surg not convinced of cholecystitis. - Mycophenolic acid level WNL - Of note, the pt reports that she travels to [facility] every year and recently returned from a mission trip in January 2017. Rare possibility for her symptoms and elevated LFTs could be a parasitic infection. We will check stools for O&P. - She had also been taking antibiotics recently for an oral surgery she had and for a finger infection and was taking antibiotics up until 01/2017. - Pt was c/o a lot of myalgia/arthralgia and on 03/23 her LFTs trended up so the pt was started on Solu-Medrol 60mg Iv Q12H on 03/23/17 to cover for ?AI process/ possible lupus flare and pts LFTs have been trending down and pt overall has been improving clinically. - Autoimmune w/up labs --> negative - Steroids converted to Prednisone 60mg po BID on 03/27/17 - Pain control PRN - Pt had complained of constipation. KUB (03/25) noted a normal bowel gas pattern. Pt was given Relistor on 03/25. She was also given GoLytely and mineral oil enema on 03/25 with resulting BMs on 03/25. Pt still some LUQ pain which improved with Simethicone 125mg Q8H - Pt had complained of some hoarseness of voice and dysphagia on 03/27. She underwent evaluation with EGD on 03/28/17 which was normal. Consider outpt referal to ENT. - Pt had complained of some cough on 03/27 as well and CXR noted bilateral pleural effusions and atelectatic changes at the bases. US chest with minimal fluid, not enough for thoracentesis. - LKM-1 Ab is negative, case was discussed with Dr. Bower (03/29) and inpatient CT guided liver biopsy performe 03/29/17. Pathology is pending - PPI - Pt continues to improve clinically - repeat labs in AM: CBC, BMP, LFTs. If stable then, will d/c to home 03/31 - f/u with GI in 2 weeks - slow prednisone taper. - DVT prophylaxis with SCDs (2) Generalized weakness Status: Acute Plan: - See above. (3) Constipation Status: Acute Plan: - May be related to pain medications and immobility. - See above. - Cont. Colace BID and Dulcolax daily (4) Lupus (systemic lupus erythematosus) Status: Chronic Plan: - Resume Cellcept at home dose of 1000mg in AM and 500mg in evening. - Hold on resuming Mobic. (5) Hypothyroidism Status: Chronic Plan: - Cont. home meds - TSH was 3.200 on 03/22/17 - Previous labs on 03/13 with TSH 0.194 and Free T4 1.33 and Synthroid was changed to 100mcg 6 days per week Jack Pablo DO Mar 30, 2017 16:59
[2017-03-30 20:00] VITALS: BP 154/87; PULSE 73; RESP 18; TEMP 97.9; O2SAT 97
[2017-03-30] MEDS: MONTELUKAST SODIUM 10 MG TAB PO SCH (20:51)
[2017-03-31] VITALS: BP 141/84; PULSE 74; RESP 18; TEMP 98.2; O2SAT 95
[2017-03-31 05:00] VITALS: BP 128/70; PULSE 70; RESP 18; TEMP 98; O2SAT 95
[2017-03-31] MEDS: SIMETHICONE 125 MG CHEWABLE TAB PO SCH ×2 (06:16→14:27)
[2017-03-31] MEDS: LEVOTHYROXINE SODIUM 100 MCG TAB PO SCH (06:17)
[2017-03-31] MEDS: ACETAMINOPHEN/HYDROcodone 325 MG/5 MG TAB PO PRN ×4 (06:17→18:18)
[2017-03-31] MEDS: MYCOPHENOLATE MOFETIL 500 MG TAB PO SCH ×2 (06:17→17:10)
[2017-03-31] MEDS: LIOTHYRONINE SODIUM 5 MCG TAB PO SCH (06:17)
[2017-03-31 07:04] LABS: AUTOMATED NEUTROPHIL # 9.7 TH/MM3 (1.8-7.7); BASOPHIL % 0.1 % (0.0-2.0); HEMATOCRIT 35.6 % (35.0-46.0); HEMO FLAGS DIFF FINAL; LYMPH % 8.1 % (9.0-44.0); LYMPHOCYTE # 0.9 TH/MM3 (1.0-4.8); MEAN CELL VOLUME 92.5 FL (80.0-100.0); MEAN CORPUSCULAR HEMOGLOBIN 30.7 PG (27.0-34.0); MEAN CORPUSCULAR HGB CONC 33.2 % (32.0-36.0); MONO % 5.8 % (0.0-8.0); PLATELET COUNT 224 TH/MM3 (150-450); RED BLOOD COUNT 3.85 MIL/MM3 (4.00-5.30); RED CELL DISTRIBUTION WIDTH 16.6 % (11.6-17.2); WHITE BLOOD COUNT 11.3 TH/MM3 (4.0-11.0)
[2017-03-31 07:22] LABS: BICARBONATE 27.3 MEQ/L (21.0-32.0); MAGNESIUM 2.2 MG/DL (1.5-2.5); POTASSIUM 3.6 MEQ/L (3.5-5.1)
[2017-03-31 07:23] LABS: INDIRECT BILIRUBIN 0.6 MG/DL (0.0-0.8); TOTAL BILIRUBIN ADULT 1.5 MG/DL (0.2-1.0)
[2017-03-31 08:00] VITALS: BP 157/92; PULSE 64; RESP 20; TEMP 98; O2SAT 96
[2017-03-31] MEDS: DOCUSATE SODIUM 100 MG CAP PO SCH (08:38)
[2017-03-31] MEDS: FLUTICASONE 100 MCG/VILANTEROL 25 MCG INHALER INH SCH (08:39)
[2017-03-31] MEDS: ACYCLOVIR 200 MG CAP PO SCH (08:39)
[2017-03-31] MEDS: PANTOPRAZOLE SOD 40 MG DELAYED RELEASE TAB PO SCH (08:39)
[2017-03-31] MEDS: DULoxetine HCl DR 60 MG CAP PO SCH (08:39)
[2017-03-31] MEDS: TOPIRAMATE 100 MG TAB PO SCH (08:39)
[2017-03-31] MEDS: BISACODYL EC 5 MG TABEC PO SCH (08:39)
[2017-03-31] MEDS: MULTIVITAMINS/MINERALS THERAPEUTIC TAB PO SCH (08:39)
[2017-03-31] MEDS: FLUTICASONE PROPIONATE 50 MCG/ACT 16 GM NASAL SPRAY EACH NARE SCH (08:39)
[2017-03-31] MEDS: LORATADINE 10 MG TAB PO SCH (08:39)
[2017-03-31] MEDS: predniSONE 20 MG TAB PO SCH (08:39)
[2017-03-31] MEDS: SODIUM CHLORIDE 0.9% FLUSH 10 ML FLUSH IV FLUSH SCH (08:40)
[2017-03-31] MEDS: HYDROCORTISONE ACETATE 25 MG SUPP RECTAL SCH (08:43)
[2017-03-31 10:26] VITALS: PULSE 59
[2017-03-31 12:00] VITALS: BP 137/66; PULSE 84; RESP 18; TEMP 98.2; O2SAT 97
[2017-03-31 16:00] VITALS: BP 141/81; PULSE 75; RESP 20; TEMP 98.2; O2SAT 98
[2017-03-31] MEDS ORDERED: PANT40TA3 PO (16:44)
[2017-03-31] MEDS ORDERED: MYCO500 PO (16:44)
[2017-03-31] MEDS ORDERED: HYDR-3580 PO (16:44)
[2017-03-31] MEDS ORDERED: SIME1CHW11 PO (16:44)
[2017-03-31] MEDS ORDERED: PRED20 PO (16:44)
--- NOTE | 2017-03-31 16:49 | HHI.DCPOC ---
Discharge Care Plan Diagnosis: (1) Hepatitis (2) Lupus (systemic lupus erythematosus) (3) Elevated LFTs Goals to Promote Your Health * To prevent worsening of your condition and complications * To maintain your health at the optimal level Directions to Meet Your Goals Take your medications as prescribed Follow your dietary instruction Follow activity as directed Keep your appointments as scheduled Take your immunizations and boosters as scheduled If your symptoms worsen call your PCP, if no PCP go to Urgent Care Center or Emergency Room Smoking is Dangerous to Your Health. Avoid second hand smoke Call the 24-hour hour crisis hotline for domestic abuse at Jack Pablo DO Mar 31, 2017 16:49
--- NOTE | 2017-03-31 16:52 | HHI.DS ---
Discharge Summary Admission Date Mar 21, 2017 at 23:00 Discharge Date: Mar 31, 2017 Admitting Diagnosis generalized weakness; hepatitis; h/o lupus (1) Elevated LFTs Diagnosis: Principal (2) Generalized weakness Diagnosis: Principal (3) Constipation Diagnosis: Secondary (4) Lupus (systemic lupus erythematosus) Diagnosis: Secondary (5) Hypothyroidism Diagnosis: Secondary Consultants Dr. Didier Bradley, Surgery Dr. Bower, Gastroenterology Brief History Mrs. Almodovar is a pleasant 52 y/o WF with Lupus (pt is on Cellcept and Mobic), COPD, hypothyroidism, migraine headaches and hx of iron deficiency. She presented to the ED at [facility] on 03/21/17 with complaints of generalized weakness, nausea, subjective fever and intermittent chills, myalgias, generalized abdominal pain, bloating and fatigue. Pt reports that her symptoms began around 3 weeks ago with left sided abdominal discomfort, increased fatigue. There was no injury to account for the left flank pain. She denies any urinary symptoms at that time. Pt was seen by her PCP, Dr. France, who sent her for a CT Abd/ pelvis W/O contrast on 03/12/17 which was negative for any renal or ureteral calculus and no evidence of obstructive uropathy. She reports a change in her bowel habits at that time with increased constipation so she tried using Fleet enemas and Dulcolax with some bowel movements but not anything significant and no real improvement in the abd/flank pain. She states that she also had some associated nausea and then began having more epigastric abdominal discomfort. She denies any association with food intake with any worsening of pain or nausea. She generally has a poor appetite but states that it has been worse lately. She has not had any vomiting either. Pt does take Mobic daily for her Lupus. Pt previously had an EGD in 12/2015 which noted gastritis otherwise negative. She was started on some Ranitidine BID but states that this didn't seem to help at all. Patient called her assembly line driver who ordered outpatient labs through the Hospital outpatient laboratory on 03/21 but continued to feel poorly so decided to go to the ED for further evaluation. Pt states that she has been too weak to get out of bed for the last 5 days. Her labs on 03/21 noted Tbili 8.3, AST 1793, ALT 1909, AlkPhos 375, CRP 1.20, ESR was 7. Autoimmune panel is pending (TIESHA, SS-A Ab/SS-B Ab, Marrero Ab, Scl-70 Ab, DS DNA Ab, RF). Pt had a GB US performed in the ED which noted marked thickening of the gallbladder wall and borderline common duct dilation and a trace amount of free fluid surrounding the liver. Repeat LFTs today with Tbili 7.5, DBili 6.2, AST 1666, ALT 1589, AlkPhos 285. Tylenol level is negative. Monoscreen is negative. Review of outpt labs from 12/2016 noted completely normal LFTs. She denies any hx of viral hepatitis. She has not had any significant medication changes recently. She had been using Flexeril and [place] intermittently. Pt was recently started on Ranitidine and Rizatriptan as needed for headaches. CBC/BMP: 03/31/17 0548 03/31/17 0548 Significant Findings Laboratory Tests Test 03/29/17 03/29/17 03/31/17 07:54 11:59 05:48 Estimat Glomerular Filtration 88 ML/MIN (>89) Rate Random Glucose 117 MG/DL 112 MG/DL (74-106) (74-106) Calcium Level 7.7 MG/DL 8.2 MG/DL (8.5-10.1) (8.5-10.1) Total Bilirubin 1.6 MG/DL 1.5 MG/DL (0.2-1.0) (0.2-1.0) Aspartate Amino Transf 69 U/L (15-37) 42 U/L (15-37) (AST/SGOT) Alanine Aminotransferase 491 U/L (10-53) 312 U/L (10-53) (ALT/SGPT) Alkaline Phosphatase 205 U/L 175 U/L (45-117) (45-117) Total Protein 5.9 GM/DL 5.7 GM/DL (6.4-8.2) (6.4-8.2) Albumin 2.5 GM/DL 2.3 GM/DL (3.4-5.0) (3.4-5.0) White Blood Count 11.1 TH/MM3 11.3 TH/MM3 (4.0-11.0) (4.0-11.0) Mean Corpuscular Hemoglobin 31.9 % Concent (32.0-36.0) Neutrophils (%) (Auto) 84.4 % 86.0 % (16.0-70.0) (16.0-70.0) Lymphocytes (%) (Auto) 6.7 % 8.1 % (9.0-44.0) (9.0-44.0) Monocytes (%) (Auto) 8.4 % (0.0-8.0) Neutrophils # (Auto) 9.4 TH/MM3 9.7 TH/MM3 (1.8-7.7) (1.8-7.7) Lymphocytes # (Auto) 0.7 TH/MM3 0.9 TH/MM3 (1.0-4.8) (1.0-4.8) Toxic Granulation 1+ (NORMAL) Tear Drop Cells 1+ (NORMAL) Ovalocytes 1+ (NORMAL) Prothrombin Time 12.0 SEC (9.8-11.6) Red Blood Count 3.85 MIL/MM3 (4.00-5.30) Chloride Level 108 MEQ/L (98-107) Direct Bilirubin 0.9 MG/DL (0.0-0.2) Imaging Last Impressions Liver Biopsy CT 03/29/17 0000 Signed Impressions: Service Date/Time: Wednesday, March 29, 2017 15:48 - CONCLUSION: Uncomplicated CT guided biopsy. Prakash Reed MD Chest X-Ray 03/27/17 0000 Signed Impressions: Service Date/Time: Monday, March 27, 2017 16:15 - CONCLUSION: 1. Bilateral pleural effusions. There are atelectatic changes within the lung bases as well. Michele Farrell MD Chest Ultrasound 03/27/17 0000 Signed Impressions: Service Date/Time: Monday, March 27, 2017 23:12 - CONCLUSION: Normal examination. Demetrius Ruth MD Abdomen X-Ray 03/25/17 0000 Signed Impressions: Service Date/Time: Saturday, March 25, 2017 16:04 - CONCLUSION: Normal examination. Vasiliy Saini Jr., MD Cholangiopancreatography MRI 03/22/17 0000 Signed Impressions: Service Date/Time: Wednesday, March 22, 2017 13:01 - CONCLUSION: Nonspecific diffuse gallbladder wall thickening and pericholecystic fluid. In the setting of ascites and pleural effusions, this finding may be related to hypoalbuminemia. No gallstones identified. Cl Trujillo MD Gall Bladder Ultrasound 03/21/17 0000 Signed Impressions: Service Date/Time: , March 21, 2017 22:48 - CONCLUSION: 1. Marked thickening of the gallbladder wall which may reflect cholecystitis. Radionuclide imaging is recommended for further evaluation if clinically indicated. Donald Weathers MD PE at Discharge General: NAD, AAOx3 Chest: CTA Cardiac: Regular Abd: +BS, non-distended, nontender, no rebound or guarding Ext: No edema Hospital Course (1) Elevated LFTs Status: Acute Plan: -Pt is a 52 y/o WF with Lupus (pt is on Cellcept and Mobic), COPD, hypothyroidism, migraine headaches and hx of iron deficiency. - Pt presented with complaints of generalized weakness, nausea, subjective fever and intermittent chills, myalgias, generalized abdominal pain, constipation, bloating and fatigue which began around 3 weeks ago with left sided abdominal discomfort, increased fatigue. - Output CT Abd/pelvis W/O contrast on 03/12/17 which was negative for any renal or ureteral calculus and no evidence of obstructive uropathy. - She reports a change in her bowel habits at that time with increased constipation so she tried using Fleet enemas and Dulcolax with some bowel movements but not anything significant and no real improvement in the abd /flank pain. - Her labs on 03/21 noted Tbili 8.3, AST 1793, ALT 1909, AlkPhos 375, CRP 1.20, ESR was 7. - Autoimmune panel is pending (TIESHA, SS-A Ab/SS-B Ab, Marrero Ab, Scl-70 Ab, DS DNA Ab, RF). - Pt had a GB US performed in the ED which noted marked thickening of the gallbladder wall and borderline common duct dilation and a trace amount of free fluid surrounding the liver. - Repeat LFTs on admission were Tbili 7.5, DBili 6.2, AST 1666, ALT 1589, AlkPhos 285. - The cause for her elevated LFTs is unclear at this time, possibly secondary to autoimmune process vs. medications vs. other. - Tylenol level is negative. - Monoscreen is negative. - Review of outpt labs from 12/2016 noted completely normal LFTs. She denies any hx of viral hepatitis. She had been using Flexeril intermittently. Pt was recently started on Ranitidine and Rizatriptan as needed for headaches. - CMV IgM Ab is elevated at 53.50 but CMV IgG Ab negative. - EBV panel is consistent with past infection. Viral hepatitis panel is negative. - ASMA (negative), AMA (negative), TIESHA (negative), Ceruloplasmin (negative) , Ferritin (elevated at 2210), and [id number] (negative) - MRCP shows pericholecystic fluid..nonspecific...gen surg not convinced of cholecystitis. - Mycophenolic acid level WNL - Of note, the pt reports that she travels to [facility] every year and recently returned from a mission trip in January 2017. Rare possibility for her symptoms and elevated LFTs could be a parasitic infection. We will check stools for O&P. - She had also been taking antibiotics recently for an oral surgery she had and for a finger infection and was taking antibiotics up until 01/2017. - Pt was c/o a lot of myalgia/arthralgia and on 03/23 her LFTs trended up so the pt was started on Solu-Medrol 60mg Iv Q12H on 03/23/17 to cover for ?AI process/ possible lupus flare and pts LFTs have been trending down and pt overall has been improving clinically. - Autoimmune w/up labs --> negative - Steroids converted to Prednisone 60mg po BID on 03/27/17. Pt will be discharged on slow prednisone taper - Pain control PRN - Pt had complained of constipation. KUB (03/25) noted a normal bowel gas pattern. Pt was given Relistor on 03/25. She was also given GoLytely and mineral oil enema on 03/25 with resulting BMs on 03/25. Pt still some LUQ pain which improved with Simethicone 125mg Q8H - Pt had complained of some hoarseness of voice and dysphagia on 03/27. She underwent evaluation with EGD on 03/28/17 which was normal. Consider outpt referal to ENT. - Pt had complained of some cough on 03/27 as well and CXR noted bilateral pleural effusions and atelectatic changes at the bases. US chest with minimal fluid, not enough for thoracentesis. - LKM-1 Ab is negative, case was discussed with Dr. Bower (03/29) and inpatient CT guided liver biopsy performe 03/29/17. Pathology is pending - PPI - Pt continues to improve clinically - f/u with Gastroenterology, in 2 weeks - f/u with PCP, in 1 week - f/u with Rheumatology, in 2 weeks. (2) Generalized weakness Status: Acute Plan: - See above. (3) Constipation Status: Acute Plan: - May be related to pain medications and immobility. - See above. - Cont. Colace BID and Dulcolax daily (4) Lupus (systemic lupus erythematosus) Status: Chronic Plan: - Resume Cellcept at home dose of 1000mg in AM and 500mg in evening. - Hold on resuming Mobic. (5) Hypothyroidism Status: Chronic Plan: - Cont. home meds - TSH was 3.200 on 03/22/17 - Previous labs on 03/13 with TSH 0.194 and Free T4 1.33 and Synthroid was changed to 100mcg 6 days per week Pt Condition on Discharge: Stable Discharge Disposition: Discharge Home Discharge Instructions DIET: Follow Instructions for: As Tolerated, No Restrictions Activities you can perform: Regular-No Restrictions Follow up Referrals: Gastroenterology - 2 Weeks with Johnnie Gentile MD PCP Follow-up - [address] Essence France Rheumatology - [address] Bass New Medications: Docusate Sodium (Dok) 100 Mg Cap 100 MG PO BID narcotics #60 Ref 0 CAP Pantoprazole (Pantoprazole) 40 Mg Tab 40 MG PO DAILY gastritis #30 Ref 0 TAB Prednisone (Prednisone) 20 Mg Tab 60 MG PO DAILY 60mg daily x 5d, then 40mg daily x 5d, then 20mg daily x 5d, then 10mg daily x 5d, then stop DISPENSE: QS hepatitis #30 TAB Simethicone (Gas Relief Maximum Streng) 125 Mg Chw 125 MG PO Q8HR abd spasm #60 Ref 0 EA Changed Medications: Mycophenolate (Cellcept) 500 Mg Tab 500 MG PO DAILY Immunosuppression #120 Ref 0 TAB (Changed from: 1000 MG) Continued Medications: Acyclovir (Acyclovir) 400 Mg Tab 400 MG PO DAILY Mgmt Viral Infection Ref 0 TAB Cholecalciferol (Vitamin D3) 2,000 Unit Cap 2000 UNITS PO DAILY Nutritional Supplement #1 Ref 0 BOTTLE Cyanocobalamin (Vitamin B-12) 1,000 Mcg Subl 1000 MCG SL DAILY Nutritional Supplement Ref [address] (Cymbalta DR) 60 Mg Capdr 60 MG PO DAILY #30 Ref 0 CAP Fexofenadine (Faye Allergy) 180 Mg Tab 180 MG PO DAILY Allergy Management #30 Ref 0 TAB Fluticasone Nasal [place] (Fluticasone Nasal [place]) 50 Mcg/Act Naspr 50 MCG EACH NARE BID 50 mcg/spray Allergy Management #1 Ref 0 BOTTLE Fluticasone-Vilanterol Inh (Breo Ellipta Inh) 100-25 Mcg/Act Inh 1 PUFF INH DAILY Use daily at the same time. #1 Ref 0 INHALER Hydrocodone-Acetaminophen (Hydrocodone-Acetaminophen) 7.5-325 mg Tab 1 TAB PO Q4H PRN PAIN #15 Ref 0 TAB (This prescription has been renewed) Levothyroxine (Synthroid) 100 Mcg Tab 100 MCG PO DAILY Thyroid #30 Ref 0 TAB Liothyronine (Liothyronine) 5 Mcg Tab 5 MCG PO DAILY Thyroid Supplement #30 Ref 0 TAB Montelukast (Montelukast) 10 Mg Tab 10 MG PO HS #30 Ref 0 TAB Multiple Vitamins W/ Minerals (Multi For Her 50+) 1 Tab Tab 1 TAB PO DAILY Mycophenolate (Cellcept) 500 Mg Tab 1000 MG PO HS Immunosuppression #120 Ref 0 TAB Topiramate (Topiramate) 200 Mg Tab 100 MG PO DAILY Control Seizures #60 Ref 0 TAB Discontinued Medications: Meloxicam (Mobic) 15 Mg Tab 15 MG PO DAILY Ref 0 TAB Jack Pablo DO Mar 31, 2017 16:52
[2017-03-31] MEDS ORDERED: DOCU1CAP39 PO (16:53)
== END 2017-03-31 18:54 | disposition home or self-care (01) | DRG 442 ==
LOC: NEPC 20:12 → NEDA 23:00 → NEPHCDU 03-22 01:27 → N04B 03-22 14:10
PROVIDERS: ADMIT Hospitalist; ATTEND Hospitalist
PROC: 0FB13ZX Excision of Right Lobe Liver, Percutaneous Approach, Diagnostic (ICD-10-PCS; principal; 2017-03-29)
DX: K71.6 Toxic liver disease with hepatitis, not elsewhere classified (principal); J90 Pleural effusion, not elsewhere classified; R18.8 Other ascites; M32.9 Systemic lupus erythematosus, unspecified; J44.9 Chronic obstructive pulmonary disease, unspecified; K81.9 Cholecystitis, unspecified; K59.00 Constipation, unspecified; E06.3 Autoimmune thyroiditis; G43.909 Migraine, unspecified, not intractable, without status migrainosus
CPT/HCPCS: 36415; 47000; 71010; 74000; 74181; 76377; 76604; 76705; 77012; 80048; 80053; 80074; 80076; 80307; 81001; 82103; 82140; 82390; 82728; 83520; 83540; 83550; 83605; 83690; 83735; 83789; 84443; 85025; 85610; 85652; 85730; 86038; 86039; 86140; 86160; 86225; 86235; 86255; 86256; 86308; 86376; 86431; 86644; 86645; 86664; 86665; 87040; 88307; 88313; 96374; 96375; C9113; J2212; J2270; J2405; J2543; J2930; J7030; J7512; J7517

== ENCOUNTER → 2017-03-21 | Outpatient (CLI) | payer OTHER ==
[~2017-03-21] MED LIST: ACYC400T PO; ADVAI250I PO; CHOL50006 PO; CYMB30CA PO; CYMB60CA PO; DOCU1CAP39 PO; FEXO15TA PO; FLUT1INH INH; FLUT50SP EACH NARE; HYDR-3580 PO; LEVO.1 PO; LIOT5 PO; LIOT5TAB3 PO; MELO15TA2 PO; MOBI15TA PO; MONT10TA4 PO; MULTTAB25 PO; MYCO500 PO; PANT40TA3 PO; PRED20 PO; SIME1CHW11 PO; TOPI100 PO; TOPI200T7 PO; VITA100020 SL; VITA100021 SL; VITA2000 PO; VITA400C70 PO; WOMECAP2 PO
[2017-03-21 19:18] LABS: AUTOMATED NEUTROPHIL # 2.9 TH/MM3 (1.8-7.7); BASOPHIL % 0.6 % (0.0-2.0); EOSINOPHIL % 0.8 % (0.0-4.0); HEMATOCRIT 37.5 % (35.0-46.0); HEMO FLAGS DIFF FINAL; LYMPH % 19.2 % (9.0-44.0); LYMPHOCYTE # 0.8 TH/MM3 (1.0-4.8); MEAN CELL VOLUME 91.3 FL (80.0-100.0); MONO % 10.7 % (0.0-8.0); NEUT % 68.7 % (16.0-70.0); PLATELET COUNT 148 TH/MM3 (150-450); RED BLOOD COUNT 4.11 MIL/MM3 (4.00-5.30); RED CELL DISTRIBUTION WIDTH 15.8 % (11.6-17.2); WHITE BLOOD COUNT 4.2 TH/MM3 (4.0-11.0)
[2017-03-21 19:49] LABS: ANION GAP 8 MEQ/L (5-15); BICARBONATE 24.4 MEQ/L (21.0-32.0); BLOOD UREA NITROGEN 11 MG/DL (7-18); CHLORIDE 105 MEQ/L (98-107); POTASSIUM 3.6 MEQ/L (3.5-5.1); SODIUM (NA) 137 MEQ/L (136-145)
[2017-03-21 19:57] LABS: WESTERGREN SEDIMENTATION RATE 7 mm/hr (0-30)
[2017-03-21 19:59] LABS: ALKALINE PHOSPHATASE 375 U/L (45-117); ALT (GPT) 1909 U/L (10-53); AST (GOT) 1793 U/L (15-37); TOTAL BILIRUBIN ADULT 8.3 MG/DL (0.2-1.0)
[2017-03-21 20:05] LABS: BACTERIA, URINE OCC /hpf; BLOOD, URINE NEG (NEG); GLUCOSE,URINE NEG (NEG); HYALINE CAST, URINE 1 /lpf (RARE); KETONE, URINE NEG (NEG); MUCUS URINE FEW /lpf (OCC); NITRITE,URINE NEG (NEG); PH, URINE 6.5 (5.0-8.5); SQUAMOUS EPITHELIAL CELL URINE 4 /hpf (0-5)
[2017-03-21 20:06] LABS: URINE COLOR AMBER (YELLW/STRAW)
[2017-03-25 13:53] LABS: ANA SER QL POSITIVE (NEGATIVE); SJOGRENS AB SSA <1.0 NEG AI (<1.0 NEGATIVE); SJOGRENS AB SSB <1.0 NEG AI (<1.0 NEGATIVE)
[2017-03-26 03:54] LABS: ANA IFA PATTERN NONE DETECTED (()); ANA IFA TITER <1:40 titer (()); DS DNA AB(CRITHIDIA) NEGATIVE (NEGATIVE); DS DNA AB(CRITHIDIA)TITER ND (<1:10)
[2017-03-26 11:51] LABS: RHEUMATOID FACTOR 5 IU/mL (<14)
== END ==
LOC: HLAB 18:31
PROVIDERS: ATTEND Allergy & Immunology
DX: R52 Pain, unspecified (principal)
CPT/HCPCS: 36415; 80053; 81001; 85025; 85652; 86038; 86039; 86140; 86225; 86235; 86255; 86256; 86431